=== PATIENT | female | born 1995 | race Caucasian/White ===

== ENCOUNTER 2024-05-14 12:45 | Outpatient (CLI) | payer OTHER, SELFPAY ==
--- NOTE | ~2024-05-14 | US_ITS ---
EXAMINATION: US OB <=14 wk fetus w TV DATE: 05/14/2024 13:10 INDICATION: Amenorrhea during first trimester TECHNIQUE: Real-time pelvic ultrasound utilizing both a transvaginal and transabdominal probe was pe rformed. The interpreting radiologist was not present for the study. COMPARISON: None. FINDINGS: The uterus measures 10.1 x 5.6 x 5.0 cm. There is an intrauterine gestational sac. A yolk sac and fe irving pole are identified. The crown rump length measures 1.1 cm, which correlates with an estimated ge stational age of 7 weeks and 1 days. heart motion is identified measuring 137 beats per minute (bpm) by M-mode Doppler. 2.6 x 1.5 x 1.3 cm hypoechoic subcutaneous hematoma along the caudal margin of the gestational sac. The right ovary measures 4.8 x 2.4 x 2.1 cm. The left ovary measures 2.5 x 2.1 x 1.7 cm. 2.7 x 2.2 x 1.9 cm hypoechoic lesion in the right ovary most likely a corpus luteum cyst. Vascular flow identifie d in both ovaries on color Doppler. There is minimal free fluid in the cul-de-sac. IMPRESSION: 1. Single living fetus with heart rate of 137 bpm. 2. Gestational age by ultrasound of 7 weeks 1 day(s) +/- 5 day(s) with ultrasound estimated date of delivery (YI) of 12/30/2024. Reviewed, dictated and finalized at location A. IMPRESSION: 1. Single living fetus with heart rate of 137 bpm. 2. Gestational age by ultrasound of 7 weeks 1 day(s) +/- 5 day(s) with ultraso und estimated date of delivery (YI) of 12/30/2024.
== END 2024-05-14 12:46 | disposition home or self-care (01) ==
LOC: GOSHIMG 12:45
PROVIDERS: PCP Obstetrics & Gynecology; Visit Provider Obstetrics & Gynecology
DX: N91.2 Amenorrhea, unspecified (principal); Z3A.01 Less than 8 weeks gestation of pregnancy
CPT/HCPCS: 76801; 76817

== ENCOUNTER 2024-05-14 13:06 | Outpatient (CLI) | payer OTHER, SELFPAY ==
[2024-05-14 16:40] LABS: Basophils Absolute Auto 0.1 K/mm3 (0.0-0.1); Basophils Percent Auto 0.6 % (0.2-1.2); Eosinophils Percent Auto 0.1 % (0-4.4); Hematocrit 41.2 % (37.0-47.0); Hemoglobin 13.5 g/dL (12.0-15.0); Immature Granulocyte Absolute 0.04 K/mm3 (0.00-0.031); Immature Granulocyte Percent A 0.5 % (0-0.5); Lymphocytes Absolute Auto 1.34 K/mm3 (0.9-3.2); Lymphocytes Percent Auto 15.2 % (18.3-44.2); Mean Corpuscular HGB Conc 32.8 g/dl (32-36); Mean Corpuscular Hemoglobin 30.8 pg (26-34); Mean Corpuscular Volume 93.8 fl (80-100); Mean Platelet Volume 12.4 fl (7.4-10.4); Monocytes Absolute Auto 0.7 K/mm3 (0.1-0.6); Monocytes Percent Auto 7.4 % (2.6-8.5); Neutrophils Absolute Auto 6.7 K/mm3 (1.3-6.7); Neutrophils Percent Auto 76.2 % (45.5-73.1); Platelet Count Result 170 k/mm3 (150-375); Red Blood Count 4.39 M/mm3 (4.2-5.4); Red Cell Distribution Width 12.2 % (11.5-14.5); White Blood Count 8.8 K/mm3 (4.5-10.0)
[2024-05-14 16:47] LABS: Hepatitis B Surface Antigen Negative (Negative); Rubella IgG Antibody 69.6 IU/ML
[2024-05-14 17:47] LABS: HIV 1/2 Ab P24 Ag Result Negative (Negative)
[2024-05-15 07:05] LABS: Rapid Plasma Reagin Non-Reactive (NonReactive)
[2024-05-15 12:13] LABS: CMV IgG Antibody <0.60 U/mL; Varicella IgG Antibody 6.25 S/CO
== END 2024-05-14 13:07 | disposition home or self-care (01) ==
LOC: ANHGOSHLAB 13:07
PROVIDERS: PCP Obstetrics & Gynecology; Visit Provider Obstetrics & Gynecology
DX: N91.2 Amenorrhea, unspecified (principal)
CPT/HCPCS: 36415; 81220; 81329; 84702; 85025; 86592; 86644; 86703; 86747; 86762; 86787; 86850; 86900; 86901; 87086; 87340; G0432

== ENCOUNTER 2024-10-01 09:55 | Observation (INO) | payer OTHER, SELFPAY ==
--- NOTE | ~2024-10-01 | US_ITS ---
EXAMINATION: US renal BI DATE: 10/01/2024 12:21 INDICATION: Hematuria. Right abdominal pain. TECHNIQUE: Multiple ultrasound grayscale images of the kidneys were obtained. COMPARISON: None. FINDINGS: The right kidney measures 13.6 x 7.3 x 4.6 cm. The left kidney measures 12.8 x 5.1 x 5.6 cm. The kidn eys demonstrate normal parenchymal echogenicity. There is mild right hydronephrosis. The bladder is n ormal. IMPRESSION: 1. Mild right hydronephrosis. Reviewed, dictated and finalized at location B.
[2024-10-01 10:00] VITALS: BMI 29.3
--- NOTE | 2024-10-01 10:00 | OBADM ---
This patient, Cata Martines, admitted to the OB room OB Post 116 for observation. Patient/family oriented to hospital policies and general routines including ID bracelet, bed and alarms, visiting hours, pain management, procedures, bathroom and other care routines, personal items, smoking policy, room service/diet, and visiting hours. Patient/Family are encouraged to report perceived risks to care and to ask questions if they do not understand what they are told or what they should do.
[2024-10-01 10:43] VITALS: BP 114/59; PULSE 81
[2024-10-01 11:02] LABS: Add Urine Microscopic? YES; Appearance Urine Cloudy (Clear); Bacteria Urine 2+ /hpf; Bilirubin Urine Negative (Negative); Blood Urine 2+ (Negative); Color Urine Yellow (Yellow); Glucose Urine UA Negative (Negative); Ketones Urine Negative (Negative); Leukocyte Esterase Ur Negative LEU/UL (Negative); Nitrate Urine Negative (Negative); Non Pathogenic Casts 0-2; Protein Urine Trace mg/dL (Negative); RBC Urine 51-100 /hpf (0-2); Squamous Epithelial Cell Urine Few /hpf (Few); Urobilinogen Urine 0.2 mg/dL (<2.0)
--- OUTSIDE RECORDS SUMMARY | 2024-10-01 11:34 | XMS_ITS | Clinical Summary ---
Author Organization [facility] Address [address] [place] [id number] Care Team Providers Care Email Marketing Intern Name Role Phone Unavailable Primary Care Provider Unavailabl e Allergies Active Allergy Reactions Criticality Noted Date Comments Penicillins Rash Low 11/04/2022 Medications nabumetone (RELAFEN) 500 mg tablet Take 1 Tablet (500 mg) by mouth 2 times daily. 20 Tablet 3 Active tiZANidine (ZANAFLEX) 2 mg Tablet Take 1-2 tablets by mouth every 8 hours as needed 18 Tablet 3 Active albuterol sulfate HFA 90 mcg/actuation aerosol inhaler 1 puff as needed Inhalation every 4 hrs Active Active Problems No known active problems Encounters Date Type Department Care Team Description 09/29/2024 External Device Data [facility] ABSTRACTION Provider, Abstract 09/28/2024 External Device Data [facility] Provider, Abstract 09/25/2024 External Device Data [facility] Provider, Abstract 09/11/2024 External Device Data [facility] Provider, Abstract 08/16/2024 External Device Data [facility]CTION Provider, Abstract 08/15/2024 External Device Data [facility] Provider, Abstract 08/14/2024 External Device Data [facility] ABSTRACTION Provider, Abstract from Last 3 Months Immunizations Immunization Administration Dates Next Due (ADACEL/BOOSTRIX)(10 YR UP) TDAP VACCINE, 0.5ML, IM 12/03/2023 Social History Tobacco Use Types Packs/Day Years Used Date Smoking Tobacco: Never Smokeless Tobacco: Never Comments No Sex and Gender Information Value Date Recorded Sex Assigned at Not on file Legal Sex Female 8:05 AM CDT Gender Identity Not on file Sexual Orientation Not on file Last Filed Vital Signs Vital Sign Reading Time Taken Comments Blood Pressure 107/73 12/03/2023 9:31 AM CDT Pulse 70 12/03/2023 9:31 AM CDT Temperature 36.5 C (97.7 F) 12/03/2023 9:31 AM CDT Respiratory Rate 16 12/03/2023 9:31 AM CDT Oxygen Saturation 99% 12/03/2023 9:31 AM CDT Inhaled Oxygen Concentration - - Weight 90.7 kg (200 lb) 12/03/2023 9:31 AM CDT Height 175.3 cm (5' 9 ) 12/03/2023 9:31 AM CDT Body Mass Index 29.53 12/03/2023 9:31 AM CDT Plan of Treatment Health Maintenance Due Date Last Done Comments HEPATITIS B VACCINES (1 of 3 - 19+ 3-dose series) 2013 INFLUENZA VACCINE (#1) 2024 CERVICAL CANCER SCREENING 2024 DTAP/TDAP/TD VACCINES (2 - T d or Tdap) 12/02/2033 12/03/2023 HPV VACCINES Aged Out No longer eligi ble based on patient's age to complete this topic Insurance [place] [address] [place] [address] CHOICE
--- OUTSIDE RECORDS SUMMARY | 2024-10-01 11:35 | XMS_ITS | Data Portability ---
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 Name Role Phone JOSUÉ THOMAS Primary Care Provider Unavailabl e Assessment Encounter Date Assessment Date Assessment LastModified by Organization Details LastModified Time 11/10/2023 11/10/2023 We will start to de-escalate the paroxetine she will start off by taking 20 mg 6 days a week 10 mg 1 day and she will drop from 20 to 10 mg 1 day every week until she is on 10 mg daily and then she will take it every other day for 2 weeks and then Tuesday for 2 weeks of the 10 mg and then she will discontinue signs and symptoms of early withdrawal discussed see me in 6 months [email or web address] Not available 01/11/2024 22:42:18 04/16/2024 04/16/2024 we will switch to Lexapro 5 mg daily per her teacher adult education request. Follow up with me at regular appointment [email or web address] Not available 04/21/2024 14:09:15 Plan of Treatment Reminders Order Date Submit Date Provider Last Modified By Organization Details Last Modified Time Details Appointments None recorded. Lab None recorded. Referral None recorded. Procedures None recorded. Surgeries None recorded. Imaging None recorded. Medication Orders Lexapro 5 mg tablet 024 024 [email or web address] [id number], [address], [place], [place], [phone], 11:21:41 Patient TargetsNo targets recorded. Patient Instructions Encounter Date Encounter Id Patient Instructions Last Modified By Organization Details Last Modified Time 04/16/2024 [id number] A healthy lifestyle: care instructions [email or web address] Not available 04/21/2024 14:09:26 Reason for Referral None Reported. Results Created Date Observation Date Name Description Value Unit Range Abnormal Flag Note LastModifiedBy Organization Detail LastModifiedTime Result Notes None recorded. Problems Name Problem SNOMED Code Status Onset Date Resolution Date Notes Provider Name and Address Organization Details Recorded Time Anxiety 60321971 Active 024 Josué Thomas MD Attn: Accounting ,[address] [place], [address] , [facility] 11/10/2023 22:55:24 Asthma 412475758 Active 024 Josué Thomas MD Attn: Accounting ,[address] [facility], [place], [address] , [facility] 11/10/2023 22:55:25 Problem Notes None recorded. Medical Equipment None Reported. Allergies Allergen ID Allergen Name Allergen Category Reaction Reaction Severity Criticality Documentation Date Start Date Code Code System Note Provider Name and Address Organization Details Recorded Time 355353 Product containin g penicilli n (product) medicatio n Not available Not available Not available 11/10/2023 55782 8001 SNOMED Not Available Not Available Not Available 529285 wheat gluten extract food Not available Not available Not available 11/10/2023 56783 81 RxNorm Not Available Not Available Not Available 009500 influenza virus vaccine, specific Not available Not available Not available Not available 11/10/2023 87843 UNK Not Available Not Available Not Available Medications Name Sig Start Date Stop Date Status Note LastModified by Organization Details LastModified Time tizanidine 2 mg tablet TAKE 1 TO 2 TABLETS BY MOUTH EVERY 8 HOURS NEEDED 11/09 completed Not Available Not Available Not Available azithromyci n 250 mg tablet TAKE 2 TABLETS BY MOUTH FOR 1 DAY THEN TAKE 1 TABLET BY MOUTH DAILY FOR 4 DAYS 11/09 completed Not Available Not Available Not Available meloxicam 15 mg tablet 11/09 completed Not Available Not Available Not Available prednisolon e acetate 1 % eye drops,suspe nsion SHAKE LIQUID AND INSTILL 1 DROP IN BOTH EYES THREE TIMES DAILY FOR 10 DAYS 11/09 completed Not Available Not Available Not Available paroxetine 20 mg tablet TAKE 1 TABLET BY MOUTH EVERY DAY active Not Available Not Available No t Available albuterol sulfate HFA 90 mcg/actuati on aerosol inhaler INHALE 2 PUFFS BY MOUTH EVERY 4 HOURS NEEDED active Not Available Not Available No t Available betamethaso ne dipropionat e 0.05 % lotion APPLY TOPICALLY TO THE AFFECTED AREA TWICE DAILY NEEDED 11/09 completed Not Available Not Available Not Available nabumetone 500 mg tablet 11/09 completed Not Available Not Available Not Available escitalopra m 5 mg tablet TAKE 1 TABLET BY MOUTH EVERY DAY 2024 active Not Available Not Available Not Avai lable Vitals Date Recorded Body height Body mass index (BMI) Body weight Oxygen saturation Oxygen saturation in Arterial blood by Pulse oximetry Heart rate Systolic blood pressure Diastolic blood pressure Provider Name and Address Organization Details Last Updated DateTime 4 177.8 cm 28.3 kg/m2 25223.7 g 100 % 100 % 70 /min 118 mm[Hg] 70 mm[Hg] Nisreen Clark MA [facility] 4 10:28:20 Date Recorded Body height Body mass index (BMI) Body weight Heart rate Oxygen saturation Oxygen saturation in Arterial blood by Pulse oximetry Systolic blood pressure Diastolic blood pressure Provider Name and Address Organization Details Last Updated DateTime 4 177.8 cm 28.1 kg/m2 18491.1 g 75 /min 99 % 99 % 110 mm[Hg] 68 mm[Hg] Estrella Jordan MA [facility] 4 12:19:21 Social History Question Answer Notes LastModified by Organizat ion Details LastModified Time Tobacco Smoking Status Never Smoker Nisreen Clark MA null, [facility] 11/10/2023 10:21:31 Do You Have An Advance Directive? No Information not available 11/10/2023 What Is Your Level Of Alcohol Consumption? Occasional Information not available 11/10/2023 Are You Blind Or Do You Have Difficulty Seeing? No Information not available 11/10/2023 What Is Your Level Of Caffeine Consumption? Moderate Information not available 11/10/2023 In The 14 Days Before Symptom Onset, Have You Had Close Contact With A Laboratory-[facility] While That Case Was Ill? No Information not available 04/16/2024 In The 14 Days Before Symptom Onset, Have You Had Close Contact With A Person Who Is Under Investigation For COVID-19 While That Person Was Ill? No Information not available 04/16/2024 Have You Been To An Area Known To Be High Risk For COVID-19? No Information not available 04/16/2024 Are You Currently Employed? Yes Information not available 11/10/2023 Are You Deaf Or Do You Have Serious Difficulty Hearing? No Information not available 11/10/2023 What Type Of Diet Are You Following? REGULAR Information not available 11/10/2023 What Is Your Occupation? [employer] Information not available 11/10/2023 What Was The Date Of Your Most Recent Tobacco Screening? 04/16/2024 Information not available 04/16/2024 What Is Your Relationship Status? Information not available 11/10/2023 Do You Use Your Seat Belt Or Car Seat Routinely? Yes Information not available 11/10/2023 Do You Have Smoke And Carbon Monoxide Detectors In Your Home? Yes Information not available 11/10/2023 Do You Feel Stressed (tense, Restless, Nervous, Or Anxious, Or Unable To Sleep At Night)? [id number] Information not available 11/10/2023 Do You Use Any Illicit Or Recreational Drugs? No Information not available 11/10/2023 Do You Use Sunscreen Routinely? Yes Information not available 11/10/2023 Has Tobacco Cessation Counseling Been Provided? No Information not available 11/10/2023 Do You Or Have You Ever Used Any Other Forms Of Tobacco Or Nicotine? No Information not available 11/10/2023 Sex: Female Functional Status Question Answer Note LastModified by Organizat ion Details LastModified Time Are you able to care for yourself? Yes Information not available 11/10/2023 What is your exercise level? Occasional Information not available 11/10/2023 Mental Status None recorded. Family History Relationship Description Onset Age of this Age Resolved Age Notes LastModified by Organization Details LastModified Time Father Hypertensive disorder [email or web address] Not available 10/23 10:20:49 Mother Hypertensive disorder [email or web address] Not available 10/23 10:20:49 Mother Epilepsy [email or web address] Not availa ble 11/10/2023 10:21:11 Medical History Condition Response Coronary Artery Disease N Other Y Atrial Fibrillation N High Blood Pressure N Depression N COPD N Blood Clots N Anxiety Disorder Y Muscle, Joint, or Bone Problems N Acid Reflux (GERD) N Cancer N Stroke N High Cholesterol N Liver Disease N Headaches N Kidney or Bladder Problems N Thyroid Problems N GI Problems N Skin Problems N Anemia N Heart Attack ([place]) N Diabetes Y Seizures/Epilepsy N Asthma Y Allergies N Hepatitis N Heart Failure N Osteoporosis N Gynecological History Statement/Question Response Date of LMP 03/22/2024 LMP Approximate Obstetrics History GPAL:G 0 P 0 0 0 0 Past Encounters Encounter ID Performer Location Encounter Start Date Encounter Closed Date Diagnosis/Indication Diagnosis SNOMED-CT Code Diagnosis ICD10 Code Diagnosis Note [id number] Josué Thomas MD [facility] [employer] [address] [place] [address] 11/10/2023 10:09:43 11/10/2023 10:53:55 Anxiety 71290895 F41.9 Asthma 455115586 J45.90 9 [id number] Josué Thomas MD [facility] [employer] [address] [place] [address] 04/16/2024 11:43:06 04/16/2024 13:27:13 Overweight 347252254 E66.3 Anxiety 87285482 F41.9 Health Concerns Section Related Observation LastModified by Organization Detai ls LastModified Time None Recorded Concern Status LastModified by Organization Details LastModified Time None Recorded Advance Directives Directive N: Payers Encounter Date Sequence Insurance Name Policy Number Policy Roland Covered Member ID Roland Member ID Guarantor Name 11/10/2023 1 [facility] [id number] Cata Martines [id number] Cata Martines 04/16/2024 1 [facility] [id number] Carlos Miguel [place] [id number] Cata Martines Notes Date Note Type Note Provider Name and Address Organization Details Recorded Time 11/10/2023 text/html 28-year-old slee p apnea CPAP anxiety asthma overall doing fine would like to start coming off the Paxil asthma stable sleep apnea doing okay Josué Thomas MD Attn: Accounting,[address] [facility], [place], [address], [facility] 01/11/2024 22:42:21 04/16/2024 text/html she did see teacher adult education and was told that they would prefer her to be off of Paxil and on Lexapro and the patient would like to do that as she is going to be contemplating starting a family soon Josué Thomas MD Attn: Accounting[address] [facility], [place], [address], [facility] 04/21/2024 14:09:28 OBGyn Episode No OBEpisode recorded.
--- OUTSIDE RECORDS SUMMARY | 2024-10-01 11:35 | XMS_ITS | Data Portability ---
Author Organization [place] [facility] [employer], Main Office Address [address] [place] [address] Assessment Encounter Date Assessment Date Assessment LastModified by Organization Details LastModified Time 11/04/2022 11/04/2022 Will x-ray the back physical therapy tizanidine 4 mg q.h.s. she will report back by phone in 48-72 hours with update [email or web address] Not available 11/14/2022 12:43:56 01/31/2023 01/31/2023 Continue with e tizanidine she has now failed physical therapy will get an MRI of her lumbar spine [email or web address] Not available 01/31/2023 22:31:21 08/04/2023 08/04/2023 Assessment: Mild OSAHS, AHI = 9 Plan: The following were reviewed and explained to the patient: [facility] home sleep study 01/19/21 AHI = 9 PAP compliance downloaded and interpreted x 20 minutes. Data reviewed and explained to the patient. Average apnea/hypopnea index (AHI) is 2.6. Patient used PAP > 4 hours 1% of the time. PAP is set at 8-11 cmH2O. PAP will be reset at 9-11 cmH2O until repeat sleep studies are done. Oxygen supplementation: none Patient is benefiting from PAP therapy. Encouraged patient to maintain PAP use more than 70% of the time. Statement of PAP use and benefits will be sent to the home care store. The patient will bring the PAP unit, the hose, the cord, the mask and the card/chip to each follow-up visit for further evaluation and adjustments. Educated the patient on problems and solutions associated with positive airway pressure (PAP) use. Difficulty tolerating pressure, mask leaks, intolerance of interface, nasal congestion, claustrophobic response, dry mouth, and unintentional mask removal during sleep were covered. Patient has some difficulty tolerating pressure. Patient is advised to practice wearing PAP daily while awake, lower pressure with or without sleeping on sides, activate PAP ramp feature, have blower checked to make sure pressure is set as prescribed and return to sleep center for consideration of auto-adjusting PAP therapy. Dry mouth is a normal occurrence for people who just start out on PAP therapy because they are not used to air blowing in to the throat to hold open. Dry mouth is exacerbated for people who wear nasal PAP mask and whose jaw drops open during sleep. Not only does this create a much less efficient therapy because of leakage, it also causes dry mouth. There are a couple solutions to help prevent this type of problem. A simple solution would be to wear a chinstrap which essentially holds the jaw in place. A second solution would be a switch to a full face mask which covers both the nose and mouth. Although this is another easy solution, using a full face mask for some could seem claustrophobic or confining. There is no silver bullet solution as no single mask is right for everybody. Sometimes it takes a bit of experimentation to find a PAP mask which best meets the patient's needs as well as fits comfortably. Another tactic is to use a humidifier on your PAP machine. Most new PAP machines have integrated humidifiers. Humidification is falcon when dealing with symptoms of dry mouth because the humidifier can supply both warm and room temperate air. Even a small amount of humidity in the airflow will help nasal passages to stay hydrated. If a person is using both a full face mask and a PAP machine with a heated humidifier and is still experiencing dry mouth, an ill-fitted PAP mask might be causing the problem. Leakage can be caused by a mask that is to large or small, the wrong style mask, the cushion is degraded or simply because the mask's straps aren't adjusted correctly. If leakage occurs, dry air from the room can leak in while humidification escapes. The result is reduced humidification within the circuit and resulting in dry throat and mouth. Finally, beyond factors involving the PAP machine and mask, dry mouth can also be caused or worsened by dehydration. The general recommendation to during eight 8 oz. glasses of water a day might be too little for many people. When people drink large amounts of coffee or other caffeine beverages, or sweat a lot during the day, making sure to rehydrate is an important part of PAP therapy. Patient will setup an appointment with [facility] for supplies and pressure adjustments. A major predictor of success with use of PAP is follow-up with both the respiratory supplier and the treating physician. To help assess adherence, a downloadable card/chip is ordered with the PAP equipment. The card/chip will be downloaded by the respiratory supplier and sent to the treating physician. The download results can show the treating physician information about adherence to treatment, residual AHI while on treatment and presence of large mask leakage. This information is especially helpful if the patient has residual sleepiness despite treatment. General information on sleep disorder breathing, evaluation of sleep disordered breathing, treatment with PAP therapy, and living with PAP therapy were covered. We discussed with the patient the impact of weight on: Sleep disordered breathing Hyperlipidemia We discussed with the patient the benefit of PAP therapy on: Sleep disordered breathing Depression Educated the patient on sleep hygiene measures. Relaxing rituals to rest easy, understanding foods with positive and negative impact on sleep, creating a peaceful sleep environment, timing of exercise, using herbal sleep aids, and practicing sleep-friendly meditation were covered. To determine how much sleep is needed, the patient will assess where (s)he falls on the spectrum, examine what lifestyle factors such as work schedules and stress are affecting the quality and quantity of sleep. In general, adults need 7-9 hours of sleep. Educated the patient regarding foods that promote sleep. These include but are not limited to cherries, bananas, toast, oatmeal, and warm milk. Educated the patient regarding foods and drinks to avoid before bedtime. These include but are not limited to aged cheese, chocolate, spicy foods, tomato-based sauces, soy, ginseng tea and processed meat. Advocated influenza vaccination annually and pneumonia vaccination in 2058. Advocated weight loss through diet and exercise. Patient's ideal body weight according to height and gender is up to 150 lbs. Encouraged patient to adjust caloric intake to maintain/achieve ideal body weight, emphasizing on fruits, vegetables, whole grains, and fat-free or low-fat products. These include lean meats, poultry, fish, beans, eggs, and nuts and foods that are low in saturated fats, trans-fats, cholesterol, salt (sodium), and glycemic index. Stressed the importance of regular exercise up to the patient's capacity limits. In this case, we recommend 20 min daily walking, 2 days a week of resistance training. Patient to monitor BP daily and bring records to PCP for further management. Follow-up: 1 week after diagnostic sleep study Not available 08/04/2023 12:11:54 10/27/2023 10/27/2023 Assessment: Mild OSAHS, AHI = 7 Plan: The following were reviewed and explained to the patient: [facility] home sleep study 01/19/21 AHI = 9 [facility] diagnostic sleep study 09/28/23 AHI = 7, supine AHI = 10 Patient will resume CPAP therapy. PAP is set at 9-11 cmH2O. PAP will remain at 9-11 cmH2O. Oxygen supplementation: none Patient is benefiting from PAP therapy. Encouraged patient to maintain PAP use more than 70% of the time. Statement of PAP use and benefits will be sent to the home care store. The patient will bring the PAP unit, the hose, the cord, the mask and the card/chip to each follow-up visit for further evaluation and adjustments. Educated the patient on problems and solutions associated with positive airway pressure (PAP) use. Difficulty tolerating pressure, mask leaks, intolerance of interface, nasal congestion, claustrophobic response, dry mouth, and unintentional mask removal during sleep were covered. Patient has some difficulty tolerating pressure. Patient is advised to practice wearing PAP daily while awake, lower pressure with or without sleeping on sides, activate PAP ramp feature, have blower checked to make sure pressure is set as prescribed and return to sleep center for consideration of auto-adjusting PAP therapy. Dry mouth is a normal occurrence for people who just start out on PAP therapy because they are not used to air blowing in to the throat to hold open. Dry mouth is exacerbated for people who wear nasal PAP mask and whose jaw drops open during sleep. Not only does this create a much less efficient therapy because of leakage, it also causes dry mouth. There are a couple solutions to help prevent this type of problem. A simple solution would be to wear a chinstrap which essentially holds the jaw in place. A second solution would be a switch to a full face mask which covers both the nose and mouth. Although this is another easy solution, using a full face mask for some could seem claustrophobic or confining. There is no silver bullet solution as no single mask is right for everybody. Sometimes it takes a bit of experimentation to find a PAP mask which best meets the patient's needs as well as fits comfortably. Another tactic is to use a humidifier on your PAP machine. Most new PAP machines have integrated humidifiers. Humidification is falcon when dealing with symptoms of dry mouth because the humidifier can supply both warm and room temperate air. Even a small amount of humidity in the airflow will help nasal passages to stay hydrated. If a person is using both a full face mask and a PAP machine with a heated humidifier and is still experiencing dry mouth, an ill-fitted PAP mask might be causing the problem. Leakage can be caused by a mask that is to large or small, the wrong style mask, the cushion is degraded or simply because the mask's straps aren't adjusted correctly. If leakage occurs, dry air from the room can leak in while humidification escapes. The result is reduced humidification within the circuit and resulting in dry throat and mouth. Finally, beyond factors involving the PAP machine and mask, dry mouth can also be caused or worsened by dehydration. The general recommendation to during eight 8 oz. glasses of water a day might be too little for many people. When people drink large amounts of coffee or other caffeine beverages, or sweat a lot during the day, making sure to rehydrate is an important part of PAP therapy. Patient will setup an appointment with [facility] for supplies and pressure adjustments. A major predictor of success with use of PAP is follow-up with both the respiratory supplier and the treating physician. To help assess adherence, a downloadable card/chip is ordered with the PAP equipment. The card/chip will be downloaded by the respiratory supplier and sent to the treating physician. The download results can show the treating physician information about adherence to treatment, residual AHI while on treatment and presence of large mask leakage. This information is especially helpful if the patient has residual sleepiness despite treatment. General information on sleep disorder breathing, evaluation of sleep disordered breathing, treatment with PAP therapy, and living with PAP therapy were covered. We discussed with the patient the impact of weight on: Sleep disordered breathing Hyperlipidemia We discussed with the patient the benefit of PAP therapy on: Sleep disordered breathing Depression Educated the patient on sleep hygiene measures. Relaxing rituals to rest easy, understanding foods with positive and negative impact on sleep, creating a peaceful sleep environment, timing of exercise, using herbal sleep aids, and practicing sleep-friendly meditation were covered. To determine how much sleep is needed, the patient will assess where (s)he falls on the spectrum, examine what lifestyle factors such as work schedules and stress are affecting the quality and quantity of sleep. In general, adults need 7-9 hours of sleep. Educated the patient regarding foods that promote sleep. These include but are not limited to cherries, bananas, toast, oatmeal, and warm milk. Educated the patient regarding foods and drinks to avoid before bedtime. These include but are not limited to aged cheese, chocolate, spicy foods, tomato-based sauces, soy, ginseng tea and processed meat. Advocated influenza vaccination annually and pneumonia vaccination in 2058. Advocated weight loss through diet and exercise. Patient's ideal body weight according to height and gender is up to 150 lbs. Encouraged patient to adjust caloric intake to maintain/achieve ideal body weight, emphasizing on fruits, vegetables, whole grains, and fat-free or low-fat products. These include lean meats, poultry, fish, beans, eggs, and nuts and foods that are low in saturated fats, trans-fats, cholesterol, salt (sodium), and glycemic index. Stressed the importance of regular exercise up to the patient's capacity limits. In this case, we recommend 20 min daily walking, 2 days a week of resistance training. Patient to monitor BP daily and bring records to PCP for further management. Follow-up: 1 year, October 2024 Not available 10/27/2023 09:11:43 Plan of Treatment Reminders Order Date Submit Date Provider Last Modified By Organization Details Last Modified Time Details Appointments Establish ed Patient 15 2024 07:30A Mariajose Salmeron MD Not available Not available Not available Lab None recorded. Referral physical therapist referral 2022 023 [facility], [address], [place], [address], 12/17/2022 09:12:02 Procedures None recorded. Surgeries None recorded. Imaging polysomno gram, diagnosti c, 6 yrs or older 2023 024 [facility], [address], [place], [address], 10/04/2023 09:59:52 MRI, lumbar spine, w/o contrast - No auth required ref#[id number] 2022 023 [email or web address] Not available 02/03/2023 13:47:02 XR, lumbar spine 2022 023 [email or web address] Not available 11/18/2022 09:03:07 Medication Orders paroxetin e 20 mg tablet 2022 023 [id number], [address], [place], [id number], 11/04/2022 16:09:47 Patient TargetsNo targets recorded. Patient InstructionsNo instructions recorded. Reason for Referral Physical Therapist Referral for Low back pain Referring Physician: Josué Thomas, Internal Medicine, Encounter Date: 11/04/2022 Results Created Date Observation Date Name Description Value Unit Range Abnormal Flag Note LastModifiedBy Organization Detail LastModifiedTime 11/05/19 23 XR, lumba r spine [facility] [address] [address] Patien t Name: KALEIGH MARTINES Access ion #: [id number] Sex: F : 1994 5 Locati on: RA2 Attend ing Physic milla: CASSI THOMAS Orderi Physic milla: CASSI THOMAS Exam Date: 023 3:16 PM Exam Name: XR L SPINE 4V+ Admitt ing Diagno sis(es ): RADIOL OGY REPORT - FINAL EXAM: XR L SPINE 4V+ HISTOR Y: lbp 27-yea r-old female with low back pain, no known injury . Pain radiat es to the bilate ral lower extrem ities. COMPAR NEGAR: None availa ble. TECHNI QUE: Five views of the lumbar spine were perfor med. FINDIN GS: No fractu res are identi fied about the lumbar spine. There is slight retrol isthes is L5 on S1 measur ing 2 mm AP. No signif icant degene rative change s. There are thorac olumba r and lumbos acral transi tional verteb christos. There is slight thorac olumba r levosc oliosi s. The obliqu e films do not demons trate spondy lolysi s. Page 1 of 2 [facility] Patien t Name: KALEIGH MARTINES Access ion #: [id number] Sex: F : 1994 5 Exam Date: 3:16 PM Exam Name: XR L SPINE 4V+ Admitt ing Diagno sis(es ): IMPRES HAYLEY: 1. No fractu re of the lumbar spine. 2. Slight thorac olumba r levosc oliosi s. 3. Thorac olumba r and lumbos acral transi tional verteb christos incide ntally noted. Create d and electr onical ly signed by: Orlin ewing MD Signed Date: 3:33 PM (CT) Dictat ed by: Orlin ewing MD DD: 3:33 PM (CT) DT: 3:33 PM (CT) Page [address] (Imaging) [address] [place] [address], [address], 05/07/2023 22:57:20 02/04/20 23 MRI, lumba r spine , w/o contr ast [facility] [address] [address] Pati t Name: KALEIGH MARTINES Access ion #: [id number] Sex: F : 1994 3 Dictat ed By: Cassi Newell ing Physic milla: CASSI THOMAS Physic milla: MELISSA CAMERON Exam Date: 2022 11:40 AM Exam Name: MRI L SPINE WO Admitt ing Diagno sis(es ): CLINIC AL INFORM ATION: Low back pain with bilate ral leg pain. TECHNI ONELIA INFORM ATION: Multis equenc e multip lanar MRI images of the lumbar spine were obtain ed withou t contra st. COMPAR NEGAR: None. INTERP RETATI ON: Straig htenin g of the normal lumbar lordos is. No signif icant spondy lolist hesis per Verteb ral body height s are mainta ined. Travel Agent ior elemen ts are intact . No focal suspic ious marrow signal abnorm ality. Visual ized spinal cord and cauda equina are within normal limits . The conus medull ngozi is approp riate in signal at the L1 level. Parasp inal soft tissue s are unrema rkable . L1-L2: No signif icant disc/f acet abnorm ality. No signif icant spinal canal or neural forami nal stenos is. L2-L3: No signif icant disc/f acet abnorm ality. No signif icant spinal canal or neural forami nal stenos is. L3-L4: No signif icant disc/f acet abnorm ality. No signif icant spinal canal or neural forami nal stenos is. L4-L5: No signif icant disc/f acet abnorm ality. No signif icant spinal canal or neural forami nal stenos is. L5-S1: Disc desicc ation with right parace ntral disc extrus ion extend ing slight ly caudal ly along the dorsal aspect of the S1 verteb ral body, measur ing up to 6.5 mm in AP dimens ion and 5 mm in cranio caudal extent . There is partia l efface ment of the right latera l recess with the disc extrus ion closel y approx imatin g the right S1 nerve roots within the latera l recess . There is facet hypert rophy with modera te bilate ral neural forami nal stenos es. Page 1 [facility] [address] [place] [address] [phone] Patien t Name: KALEIGH MARTINES Access ion #: [id number] Sex: F : 1994 3 Dictat ed By: Cassi blancas [facility] ing Physic milla: MELISSA CAMERON ng Physic milla: MELISSA CAMERON Exam Date: 2022 11:40 AM Exam Name: MRI L SPINE WO Admitt ing Diagno sis(es ): IMPRES HAYLEY: 1. Right parace ntral disc extrus ion at L5-S1, partia lly effaci ng the right latera l recess and closel y approx imatin g the right S1 nerve roots within the latera l recess . 2. Facet hypert rophy at L5-S1 with modera te bilate ral neural forami nal stenos es. Electr onical ly Signed by: Cassi blancas at 2022 12:44: 45 PM Page 2 [facility] (Imaging) [address] [place], [address], 02/04/2023 11:04:19 10/04/19 24 09/28/2023 polys omnog tina, diagn ostic , 6 yrs or older No observ ation record ed. [facility] [address] [place], [address], 10/04/2023 09:59:53 Result Notes None recorded. Problems Name Problem SNOMED Code Status Onset Date Resolution Date Notes Provider Name and Address Organization Details Recorded Time Acne 02030099 Active 2021 Not Available [facility] 3 06:22:10 Infectious mononucleosis 383586392 Active Not Available [facility] 3 06:22:10 Anxiety 13451734 Active 2021 Not Available [facility] 3 06:22:10 Hyperlipidemi a 75500424 Active 2021 Not Available [facility] 3 06:22:10 Low back pain 109177355 Active 2022 Not Available [facility] 3 06:22:10 Obstructive sleep apnea syndrome 23769255 Active 2023 Taco Salmeron MD [address], [place], [address] , [facility] [email or web address] [facility] 4 11:40:49 Notes:Medical History: Depre ssion Rhinitis Obesity with mild OSAHS, AHI = 9, 01/19/21, on autoCPAP c/o IVRC Obesity with mild OSAHS, AHI = 7, 01/19/21, on autoCPAP c/o IVRC Hyperlipidemia Psoriasis 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 Procedures Surgical History None recorded. Imaging Results Imaging Date Name Status LastModified by Organiz ation Details LastModified Time 11/04/2022 XR, lumbar spine completed [id number] [facility] (Imaging) [address] [place], [address], 05/07/2023 22:57:20 02/03/2023 [facility], lumbar spine, w[facility]o contrast [email or web address] (Imaging) [address] [place], [address], 02/04/2023 11:04:19 09/28/2023 polysomnogram , diagnostic, 6 yrs or older completed [facility] [address] [place], [address], 10/04/2023 09:59:53 Procedure Notes None recorded. Medical Equipment None Reported. Allergies Allergen ID Allergen Name Allergen Category Reaction Reaction Severity Criticality Documentation Date Start Date Code Code System Note Provider Name and Address Organization Details Recorded Time 45492 Product containin g penicilli n (product) medicatio n hives Not available Not available 09/22/2022 16600 8001 SNOMED Not Available [facility] 3 18:08:02 97721 influenza A (H5N1) virus vaccine monoval (18 yr +) Not available hives Not available Not available 09/22/2022 50273 UNK Not Available [facility] 3 18:08:03 Medications Name Sig Start Date Stop Date Status Note LastModified by Organization Details LastModified Time prednisone 10 mg tablet take 3 for 2 days, 2 for 2 days, 1 for 2 days active Not Available Not Available No t Available tizanidine 2 mg tablet Take 1 tablet every 8 hours by oral route. 10/26 completed Not Available Not Available Not Available clindamycin HCl 300 mg capsule 01/26 completed Not Available Not Available Not Available azithromyci n 250 mg tablet TAKE 2 TABLETS BY MOUTH FOR 1 DAY THEN TAKE 1 TABLET BY MOUTH DAILY FOR 4 DAYS 10/26 completed Not Available Not Available Not Available ibuprofen 800 mg tablet 01/26 completed Not Available Not Available Not Available metronidazo le 0.75 % (37.5 mg/5 gram) vaginal gel 01/26 completed Not Available Not Available Not Available prednisone 20 mg tablet 07/14 completed Not Available Not Available Not Available spironolact one 100 mg tablet 08/01 completed Not Available Not Available Not Available terconazole 0.8 % vaginal cream 01/26 completed Not Available Not Available Not Available clindamycin HCl 150 mg capsule TAKE ONE CAPSULE BY MOUTH FOUR TIMES DAILY UNTIL ALL GONE 12/30 completed Not Available Not Available Not Available topiramate 25 mg tablet TAKE 1 TABLET BY MOUTH TWICE DAILY active Not Available Not Available No t Available phentermine 37.5 mg tablet active Not Available Not Available Not Available tretinoin 0.05 % topical cream 01/06 completed Not Available Not Available Not Available ciprofloxac in 500 mg tablet TK 1 T PO Q 12 H 12/12 completed Not Available Not Available Not Available prednisolon e acetate 1 % eye drops,suspe nsion SHAKE LIQUID AND INSTILL 1 DROP IN BOTH EYES THREE TIMES DAILY FOR 10 DAYS 08/04 completed Not Available Not Available Not Available benzonatate 100 mg capsule 08/01 completed Not Available Not Available Not Available doxycycline monohydrate 100 mg capsule TAKE ONE CAPSULE BY MOUTH EVERY 12 HOURS FOR 10 DAYS 02/25 completed Not Available Not Available Not Available paroxetine 20 mg tablet TAKE 1 TABLET BY MOUTH EVERY DAY active Not Available Not Available No t Available cyanocobala min (vit B-12) 1,000 mcg/mL injection solution 02/16 completed Not Available Not Available Not Available Advair Diskus 250 mcg-50 mcg/dose powder for inhalation Inhale 1 puff twice a day by inhalatio n route. active Not Available Not Available No t Available montelukast 10 mg tablet TK 1 T PO Q DAY 01/06 completed Not Available Not Available Not Available albuterol sulfate HFA 90 mcg/actuati on aerosol inhaler INHALE 2 PUFFS BY MOUTH EVERY 4 HOURS NEEDED active Not Available Not Available No t Available fluticasone propionate 50 mcg/actuati on nasal spray,suspe nsion [place] 1 spray every day by intranasa l route. active Not Available Not Available No t Available betamethaso ne dipropionat e 0.05 % lotion APPLY TOPICALLY TO THE AFFECTED AREA TWICE DAILY NEEDED 08/04 completed Not Available Not Available Not Available doxycycline hyclate 100 mg tablet Take 1 tablet twice a day by oral route. active Not Available Not Available No t Available adapalene 0.1 % topical gel 02/16 completed Not Available Not Available Not Available naproxen 500 mg tablet 01/06 completed Not Available Not Available Not Available spironolact one 50 mg tablet TAKE 2 TABLETS PO QAM 01/06 completed Not Available Not Available Not Available nabumetone 500 mg tablet Take 1 tablet twice a day by oral route. 10/26 completed Not Available Not Available Not Available cyclobenzap rine 5 mg tablet 07/14 completed Not Available Not Available Not Available Claravis 40 mg capsule Take 2 capsules every day by oral route in the morning. 01/06 completed Not Available Not Available Not Available Tri-Sprinte c (28) 0.18 mg(7)/0.215 mg(7)/0.25 mg(7)-35 mcg tablet TK 1 T PO D 08/01 completed Not Available Not Available Not Available hydrocodone 7.5 mg-acetamin ophen 325 mg/15 mL oral solution 07/14 completed Not Available Not Available Not Available Lutera (28) 0.1 mg-20 mcg tablet TK 1 T PO Q DAY 01/26 completed Not Available Not Available Not Available B Complex-Vit egan B12 01/06 completed Not Available Not Available Not Available drospirenon e 3 mg-ethinyl estradiol 0.02 mg tablet TAKE 1 TABLET BY MOUTH EVERY DAY 09/14 completed Not Available Not Available Not Available Claravis 30 mg capsule 01/26 completed Not Available Not Available Not Available Symbicort 80 mcg-4.5 mcg/actuati on HFA aerosol inhaler INHALE 2 PUFFS BY MOUTH TWICE DAILY 09/14 completed Not Available Not Available Not Available Doryx 200 mg tablet,lester yed release 02/16 completed Not Available Not Available Not Available Onexton 1.2 % (1 % base)-3.75 % topical gel with pump 01/06 completed Not Available Not Available Not Available Vitals Date Recorded Body mass index (BMI) Heart rate Body height Oxygen saturation Oxygen saturation in Arterial blood by Pulse oximetry Heart rate Respiratory rate Body temperature Body weight Systolic blood pressure Diastolic blood pressure Provider Name and Address Organization Details Last Updated DateTime 2 28.5 kg/m2 76 /min 172.72 cm 98 % 98 % 76 /min 15 /min 97.8 [degF] 09894.2 1 g 110 mm[Hg] 70 mm[Hg] Not Available [facility] 3 18:05:38 Date Recorded Body height Body mass index (BMI) Body weight Body temperature Heart rate Systolic blood pressure Diastolic blood pressure Provider Name and Address Organization Details Last Updated DateTime 3 172.72 cm 29.8 kg/m2 89928.1 g 98.3 [degF] 82 /min 124 mm[Hg] 80 mm[Hg] MICHAEL Carter [employer] 3 15:06:11 Date Recorded Body height Body mass index (BMI) Body weight Body temperature Heart rate Systolic blood pressure Diastolic blood pressure Provider Name and Address Organization Details Last Updated DateTime 3 172.72 cm 30.9 kg/m2 36288.2 5 g 98.7 [degF] 78 /min 118 mm[Hg] 70 mm[Hg] MICHAEL Carter [employer] 3 14:08:09 Date Recorded Body height Body mass index (BMI) Body weight Body temperature Heart rate Oxygen saturation Oxygen saturation in Arterial blood by Pulse oximetry Systolic blood pressure Diastolic blood pressure Provider Name and Address Organization Details Last Updated DateTime 4 172.72 cm 31.5 kg/m2 93738.6 2 g 98.6 [degF] 66 /min 98 % 98 % 120 mm[Hg] 72 mm[Hg] Aliya Pena MA [employer] 4 11:53:06 Date Recorded Heart rate Respiratory rate Provider N nicole and Address Organization Details Last Updated DateTime 08/04/2023 66 /min 15 /min Taco Salmeron MD [address] [place] [address] [place], [address], [address], [facility] [employer] 08/04/2023 12:08:52 Date Recorded Body height Body mass index (BMI) Body weight Body temperature Heart rate Oxygen saturation Oxygen saturation in Arterial blood by Pulse oximetry Systolic blood pressure Diastolic blood pressure Provider Name and Address Organization Details Last Updated DateTime 4 172.72 cm 30 kg/m2 02087.8 5 g 98.5 [degF] 75 /min 99 % 99 % 108 mm[Hg] 68 mm[Hg] Cristine Silva MA [facility] [employer] 4 08:46:29 Date Recorded Heart rate Respiratory rate Provider N nicole and Address Organization Details Last Updated DateTime 10/27/2023 75 /min 14 /min Taco Salmeron MD [address] [facility] [address], [place], [address], [facility] [employer] 10/27/2023 09:04:48 Social History Question Answer Notes LastModified by Organizat ion Details LastModified Time Tobacco Smoking Status Never Smoker Not Available [facility] 09/22/2022 18:05:10 Do You Have An Advance Directive? No [id number] Information not available 09/22/2022 What Is Your Level Of Alcohol Consumption? Occasional MIGRATION.20415 [id number] Information not available 09/22/2022 Do You Wear A Helmet When Biking? No MIGRATION.60863 04172 Information not available 09/22/2022 What Is Your Level Of Caffeine Consumption? Heavy MIGRATION.11482 52267 Information not available 09/22/2022 How Much Tobacco Do You Chew? None MIGRATION.18927 19560 Information not available 09/22/2022 In The 14 Days Before Symptom Onset, Have You Had Close Contact With A Laboratory-confi rmed COVID-19 While That Case Was Ill? No MIGRATION.32476 90801 Information not available 09/22/2022 In The 14 Days Before Symptom Onset, Have You Had Close Contact With A Person Who Is Under Investigation For COVID-19 While That Person Was Ill? No MIGRATION.76210 56552 Information not available 09/22/2022 What Type Of Diet Are You Following? GLUTENFREE MIGRATION.71145 77291 Information not available 09/22/2022 Which Illicit Or Recreational Drugs Have You Used? No MIGRATION.67529 89817 Information not available 09/22/2022 Do You Or Have You Ever Used E-cigarettes Or Vape? Never Used Electronic Cigarettes MIGRATION.54294 13182 Information not available 09/22/2022 What Is The Highest Grade Or Level Of School You Have Completed Or The Highest Degree You Have Received? GR05067-3 MIGRATION.06312 50435 Information not available 09/22/2022 Do You Have An Electrostatic Air Filter? 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 5 MIGRATION.47440 10038 Information not available 09/22/2022 On Those Days That You Engage In Moderate To Strenuous Exercise, How Many Minutes, On Average, Do You Exercise? 45 MIGRATION.01991 55014 Information not available 09/22/2022 Have There Been Any Changes To Your Family Or Social Situation? No MIGRATION.57290 52335 Information not available 09/22/2022 What Is The Fluoride Status Of Your Home? Unknown MIGRATION.82239 10988 Information not available 09/22/2022 Are There Any Guns Present In Your Home? No MIGRATION.73713 33902 Information not available 09/22/2022 Do You Have A Humidifier? No MIGRATION.26091 80722 Information not available 09/22/2022 Do You Use Insect Repellent Routinely? No MIGRATION.97256 07125 Information not available 09/22/2022 Where Do You Live? Apartment MIGRATION.63291 55313 Information not available 09/22/2022 Do You Have A Medical Power Of Shoemaking Finisher? No MIGRATION.21410 88707 Information not available 09/22/2022 Do You Have Moisture Problems In Your Home? No MIGRATION.37899 22690 Information not available 09/22/2022 What Was The Date Of Your Most Recent Tobacco Screening? 10/27/2023 [email or web address] Information not available 10/27/2023 Have You Ever Been Counseled For Unhealthy Alcohol Use? No MIGRATION.52246 63512 Information not available 09/22/2022 Do You Have Any Pets? No MIGRATION.88826 04104 Information not available 09/22/2022 What Is Your Relationship Status? Single Engaged MIGRATION.79249 03760 Information not available 09/22/2022 Do You Use Your Seat Belt Or Car Seat Routinely? Yes MIGRATION.52831 64439 Information not available 09/22/2022 Do You Have Smoke And Carbon Monoxide Detectors In Your Home? Yes MIGRATION.58666 61757 Information not available 09/22/2022 Are You Passively Exposed To Smoke? No MIGRATION.24626 02110 Information not available 09/22/2022 Do You Or Have You Ever Used Smokeless Tobacco? Never Used Smokeless Tobacco MIGRATION.51810 02623 Information not available 09/22/2022 Are There Any Smokers In Your House? No MIGRATION.99602 86857 Information not available 09/22/2022 How Much Tobacco Do You Smoke? No MIGRATION.44870 55069 Information not available 09/22/2022 What Types Of Sporting Activities Do You Participate In? Cycling Classes MIGRATION.23868 33854 Information not available 09/22/2022 Do You Feel Stressed (tense, Restless, Nervous, Or Anxious, Or Unable To Sleep At Night)? [id number] MIGRATION.57694 25950 Information not available 09/22/2022 Do You Use Any Illicit Or Recreational Drugs? No MIGRATION.35404 61513 Information not available 09/22/2022 Do You Use Sunscreen Routinely? No MIGRATION.94015 48830 Information not available 09/22/2022 Has Tobacco Cessation Counseling Been Provided? No Not Needed-nev er Smoked MIGRATION.78060 22846 Information not available 09/22/2022 How Many Years Have You Smoked Tobacco? 0 MIGRATION.56869 54747 Information not available 09/22/2022 Have You Recently Traveled Abroad? No MIGRATION.96526 81370 Information not available 09/22/2022 Do You Have Any Dietary Restrictions? No MIGRATION.21703 92082 Information not available 09/22/2022 Do You Or Have You Ever Used Any Other Forms Of Tobacco Or Nicotine? No MIGRATION.20441 91923 Information not available 09/22/2022 Sex: Female Functional Status Question Answer Note LastModified by Organizat ion Details LastModified Time What is your exercise level? Heavy MIGRATION.[id number] Information not available 09/22/2022 Mental Status None recorded. Family History Relationship Description Onset Age of this Age Resolved Age Notes LastModified by Organization Details LastModified Time Mother Epilepsy MIGRATION.488 [id number] Not available 09/22/2022 18:05:27 Mother Hypertensive disorder MIGRATION.663 [id number] Not available 09/22/2022 18:05:28 Father Arthritis MIGRATION.424 [id number] Not available 09/22/2022 18:05:28 Father Hypertensive disorder MIGRATION.953 [id number] Not available 09/22/2022 18:05:28 Brother General health good MIGRATION.714 [id number] Not available 09/22/2022 18:05:28 Paternal Grandfather Diabetes mellitus MIGRATION.158 [id number] Not available 09/22/2022 18:05:28 Paternal Grandfather General health good MIGRATION.183 [id number] Not available 09/22/2022 18:05:28 Maternal Grandmother General health good MIGRATION.056 [id number] Not available 09/22/2022 18:05:28 Father Atrial fibrillation [email or web address] Not available 0 01/31/2023 14:06:54 Medical History Condition Response BLINDNESS N NERVE DISEASE N RHEUMATIC FEVER N BLADDER PROBLEMS N KIDNEY STONES N MRSA N OTHER # 1 Y POLIO N LUNG DISEASE/DISORDER N RADIATION / CHEMOTHERAPY N COPD N Other # 2 N BLOOD DISEASES N EAR OR HEARING PROBLEMS N MUMPS N BOWEL PROBLEMS Y DEPRESSION (INCLUDING POST ) N STROKE/TIA N ULCERS N BENIGN PROSTATIC HYPERPLASIA N MEASLES N MYOCARDIAL INFARCTION N OBESITY N GERD/NAUSEA N ANEURYSM N URINARY/BLADDER/KIDNEY PROBLEMS N CORONARY ARTERY DISEASE (CAD) N ADDICTION CONCERNS N ENDOMETRIOSIS N Impotence N USE OF BLOOD THINNERS N SKIN PROBLEMS N GASTROINTESTINAL DISORDER N PERIPHERAL VASCULAR DISEASE N MUSCLE,JOINT OR BONE PROBLEMS N GASTROINTESTINAL BLEEDING N BLOOD CLOTS N ASTHMA Y CATARACTS N ERECTILE DYSFUNCTION N VARICOSITIES N GI PROBLEMS N Low Testosterone N INFERTILITY N AIDS/HIV N CHEMOTHERAPY / RADIATION N LIVER DISEASE N MALE HYPOGONADISM N HYPERTENSION N Deficiency N TOURETTE'S N ANXIETY DISORDER Y BLOOD TRANSFUSION N ANEMIA/BLOOD DISORDER N CHRONIC EAR INFECTIONS N BRONCHITIS N TUBERCULOSIS N GLAUCOMA N FOOT PROBLEM N DIVERTICULITIS N SLEEP APNEA N CHICKENPOX N INFECTIOUS DISEASE N HEART ARRHYTHMIA N PROSTATE N INSOMNIA N HIGH CHOLESTEROL / HYPERLIPIDEMIA N HYPERTHYROIDISM N EYE PROBLEMS N EDEMA N CHRONIC PAIN SYNDROME N HYPOTHYROIDISM N CAROTID BLOCKAGE N CONSTIPATION N BACK / NECK PROBLEMS N HAVE YOU BEEN HOSPITALIZED OR SEEN IN [facility] IN THE PAST YEAR ? N ATHEROSCLEROSIS N BREAST PROBLEMS N DIALYSIS N ECZEMA Y OSTEOPOROSIS N ARTHRITIS N APPENDICITIS N DIABETES, TYPE N BAD TEETH N ENT N HEARTBURN / REFLUX N AUTISM SPECTRUM DISORDER (ASD) N HEPATITIS / LIVER DISEASE N GOUT N SLEEP DISORDER N ALZHEIMER'S DISEASE N Brain Problems N HERPES N DEMENTIA N HEADACHES/MIGRAINES N SEIZURES/EPILEPSY N VASCULAR DISEASE N PACEMAKER N Blood Disorder N DIZZINESS N HEART DISEASE/HEART PROBLEMS N KIDNEY DISEASE N MULTIPLE SCLEROSIS N CARDIAC ARRHYTHMIA N CANCER: SPECIFY N ATRIAL FIBRILLATION N Gall Stones N PULMONARY EMBOLISM N AUTOIMMUNE DISEASE N Gynecological History Statement/Question Response Abnormal Pap N Date of Last Pap Smear Current Control Method None Age at Menarche 14 Date of LMP 01/05/2021 Breast Problems no Obstetrics History GPAL:G 0 P 0 0 0 0 Immunizations Vaccine Type Date Status Note Provider Nam e and Address Organization Details Recorded Time COVID-19, mRNA, LNP-S, PF, 30 mcg/0.3 mL dose 09/26/2020 completed Not Available [facility] 06:22:10 COVID-19, mRNA, LNP-S, PF, 30 mcg/0.3 mL dose 09/06/2020 completed Not Available [facility] 06:22:10 HPV9 11/21/2007 completed Not Available [facility] 02/12/2023 06:22:10 HPV9 02/15/2007 completed Not Available [facility] 02/12/2023 06:22:10 HPV9 12/13/2006 completed Not Available [facility] 02/12/2023 06:22:10 Past Encounters Encounter ID Performer Location Encounter Start Date Encounter Closed Date Diagnosis/Indication Diagnosis SNOMED-CT Code Diagnosis ICD10 Code Diagnosis Note [id number] [facility] Internal Med Shailesh aguilar [address] [place] [address] [facility] [address] 12/30/2020 00:00:00 12/31/2020 07:52:53 [id number] _GABRIELLA_Mariajose IGRATION_ DEFAULT_1 _1 , 01/20/2021 00:00:00 01/20/2021 13:00:06 [id number] [facility] Pulmonolo gy [address] [address] 04/20/2021 00:00:00 04/20/2021 09:10:34 [id number] [facility] [address] [place] [address]., [address] [address] 09/14/2021 00:00:00 09/20/2021 16:44:49 [id number] [facility] [address] [address] 10/19/2021 00:00:00 10/25/2021 13:41:53 [id number] [facility] [address] [address] 11/16/2021 00:00:00 11/16/2021 17:53:32 [id number] [facility] [address] [address] 01/11/2022 00:00:00 01/18/2022 08:45:08 [id number] [facility] Shailesh [address], [place] [address] 02/25/2022 00:00:00 03/21/2022 17:03:24 [id number] [facility] [address], [address] [address] 04/15/2022 00:00:00 05/23/2022 22:03:34 [id number] [facility] [address] [address] 06/24/2022 00:00:00 06/24/2022 11:01:02 [id number] Josué Thomas MD [facility] [place] [address] 11/04/2022 14:53:03 11/04/2022 16:07:08 Low back pain 639520144 M54.50 Renewal of prescription [id number] Z76.0 [id number] [facility] [address], [address] [address] 01/31/2023 13:58:43 01/31/2023 15:16:35 Low back pain 795806315 M54.50 [id number] Taco Salmeron MD [facility] [address] [address] 08/04/2023 11:23:26 08/05/2023 08:35:35 Obstructive sleep apnea syndrome 62602990 G47.33 [id number] Taco Salmeron MD [facility] [address] [address] 10/27/2023 08:22:59 10/28/2023 08:53:14 Obstructive sleep apnea syndrome 48888278 G47.33 Health Concerns Section Related Observation LastModified by Organization Detai ls LastModified Time None Recorded Concern Status LastModified by Organization Details LastModified Time None Recorded Advance Directives Directive N: Payers Encounter Date Sequence Insurance Name Policy Number Policy Roland Covered Member ID Roland Member ID Guarantor Name 11/04/2022 1 [employer] [id number] Carlos A Conrad [id number] Kaleigh E Conrad 01/31/2023 1 UMR [id number] Carlos A Conrad [id number] Kaleigh E Conrad 08/04/2023 1 UMR [id number] Carlos A Conrad [id number] Kaleigh E Conrad 10/27/2023 1 UMR [id number] Carlos A Conrad [id number] Kaleigh E Conrad Notes Date Note Type Note Provider Name and Address Organization Details Recorded Time 11/04/2022 text/html Severe low back pain with no trauma does not really were going to her legs movement makes it worse Josué Thomas MD [address], [address], [place], [address], [employer] [facility] [employer] [facility] 11/14/2022 12:50:09 01/31/2023 text/html was doing better with therapy and then towards the end she decompensated now she has horrible spasm better back pain radiating to both legs numbness in both eyes no bowel or bladder incontinence terrible time standing up straight Josué Thomas MD [address], [address], [place], [address], [employer] [facility] [employer] 01/31/2023 22:32:08 08/04/2023 text/html Primary care/Ref erring provider: Josué Thomas MD CC: I only use the CPAP for 2 nights in the interim because I am not sure that I still have significant DARIEN. I did gain 20 lbs in the interim after I discontinued my weight loss medication, phentermine. At home since 2021, the patient uses a [employer]Med AirSense 10 autoset unit with heated humidification. The patient does not need the ramp to start low and go up slowly on the pressure anymore. There is some xerostomia in a.m. There is no hose/mask condensation with water.The patient wears a [employer] small AirFit N30i nasal mask without chin strap. There is no claustrophobia, no nostril/nose bridge irritation, no facial rash, no facial numbness, no nosebleeding.The patient feels more refreshed upon waking and daytime alertness is improved. Energy levels are sustained until early afternoon, around 1 pm.At home, the patient sleeps from 10 pm to 6:15 am and wakes up with an alarm.Snoring: heavy, since 2009sSnorting: noChoking: noCoughing: yesGasping: noGagging: noSighing: noWitnessed apnea: yesTwitching or jerking of leg(s), arm(s), body, head: noTeeth grinding: noTeeth clenching: noSleeptalking: noSleepwalking: noSleep crying: noBedwetting: noTongue/lip/gum/cheek biting: noSleeping with open mouth: yesSleep paralysis: noHypnagogic hallucinations: noHypnopompic hallucinations: noVivid dreams: yesDifficulty with sleep onset: noDifficulty with sleep maintenance: yesSleep interruptions: coughingPatient wakes up with: fatigue, xerostomiaDaytime cataplexy: noMorning hypersomnolence: yesAfternoon hypersomnolence: yesCaffeine sources in diet: coffee 2.5 cups per day, chocolate 1/2 candy bar per month, energy drink 1/3 can of Red Bull per dayAssociated medical and psychiatric conditions:Congestive heart failure: noCoronary artery disease: noMyocardial infarction: noHypertension: noStroke: noBronchial asthma: noChronic obstructive pulmonary disease: noDepression: yesBipolar disorder: noAnxiety: noPanic disorder: noPosttraumatic stress disorder: noAttention deficit and hyperactivity disorder: noObsessive Compulsive disorder: noSchizophrenia: noSchizoaffective disorder: noPersonality disorder: noChronic analgesic use: noChronic sedative/hypnotic use: noEPWORTH SLEEPINESS SCALE (ESS)CHANCE OF DOZING SCORE0 = would never doze1 = slight chance of dozing2 = moderate chance of dozing3 = high chance of dozingSITUATION AND CHANCE OF DOZINGSitting and reading - 3Watching television - 3Sitting inactive in a public place (e.g. a theater or meeting) - 1As a passenger in a car for an hour without a break - 0Lying down to rest in the afternoon when circumstances permit - 3Sitting and talking to someone - 0Sitting quietly after lunch without alcohol - 0In a car, while stopped for a few minutes in the traffic - 0TOTAL SCORE 10Subjectively, patient has a moderate chance of dozing. Taco Salmeron MD [address] [place] [address], [address], [facility] [employer] 08/04/2023 12:21:41 10/27/2023 text/html Primary care/Ref erring provider: Josué Thomas MD During the [facility] diagnostic sleep study on 09/28/23, AHI = 7, supine AHI = 10.At home since 08/04/23, the patient owns a ResMed AirSense 10 autoset unit with heated humidification. The patient does not need the ramp to start low and go up slowly on the pressure anymore. There is some xerostomia in a.m. There is no hose/mask condensation with water.The patient owns a [employer] small AirFit N30i nasal mask without chin strap. There is no claustrophobia, no nostril/nose bridge irritation, no facial rash, no facial numbness, no nosebleeding.The patient feels less refreshed upon waking and daytime alertness is mildly improved. Energy levels are sustained until early afternoon, around 1 pm.At home, the patient sleeps from 10 pm to 6:15 am and wakes up with an alarm.Snoring: heavy, since 2009sSnorting: noChoking: noCoughing: yesGasping: noGagging: noSighing: noWitnessed apnea: yesTwitching or jerking of leg(s), arm(s), body, head: noTeeth grinding: noTeeth clenching: noSleeptalking: noSleepwalking: noSleep crying: noBedwetting: noTongue/lip/gum/cheek biting: noSleeping with open mouth: yesSleep paralysis: noHypnagogic hallucinations: noHypnopompic hallucinations: noVivid dreams: yesDifficulty with sleep onset: noDifficulty with sleep maintenance: yesSleep interruptions: coughingPatient wakes up with: fatigue, xerostomiaDaytime cataplexy: noMorning hypersomnolence: yesAfternoon hypersomnolence: yesCaffeine sources in diet: coffee 2.5 cups per day, chocolate 1/2 candy bar per month, energy drink 1/3 can of Red Bull per dayAssociated medical and psychiatric conditions:Congestive heart failure: noCoronary artery disease: noMyocardial infarction: noHypertension: noStroke: noBronchial asthma: noChronic obstructive pulmonary disease: noDepression: yesBipolar disorder: noAnxiety: noPanic disorder: noPosttraumatic stress disorder: noAttention deficit and hyperactivity disorder: noObsessive Compulsive disorder: noSchizophrenia: noSchizoaffective disorder: noPersonality disorder: noChronic analgesic use: noChronic sedative/hypnotic use: noEPWORTH SLEEPINESS SCALE (ESS)CHANCE OF DOZING SCORE0 = would never doze1 = slight chance of dozing2 = moderate chance of dozing3 = high chance of dozingSITUATION AND CHANCE OF DOZINGSitting and reading - 2Watching television - 2Sitting inactive in a public place (e.g. a theater or meeting) - 0As a passenger in a car for an hour without a break - 1Lying down to rest in the afternoon when circumstances permit - 2Sitting and talking to someone - 0Sitting quietly after lunch without alcohol - 0In a car, while stopped for a few minutes in the traffic - 0TOTAL SCORE 7Subjectively, patient has a moderate chance of dozing. Taco Salmeron MD [address] [place] [address], [place], [address], [facility] 10/27/2023 09:13:12 OBGyn Episode No OBEpisode recorded.
--- OUTSIDE RECORDS SUMMARY | 2024-10-01 11:35 | XMS_ITS | Encounter Summary ---
Author Organization [facility] Address [address] [place] [address] Care Team Providers Care Naphthalene Operator Helper Name Role Phone Unavailable Primary Care Provider Unavailabl e Encounter Details Date Type Department Care Team (Late st Contact Info) Description 09/29/2024 External Device Data [facility] ABSTRACTION Provider, Abstract NO ADDRESS ON FILE Social History Tobacco Use Types Packs/Day Years Used Date Smoking Tobacco: Never Smokeless Tobacco: Never Comments No Sex and Gender Information Value Date Recorded Sex Assigned at Not on file Legal Sex Female 8:05 AM CDT Gender Identity Not on file Sexual Orientation Not on file documented as of this encounter Plan of Treatment Not on file documented as of this encounter Visit Diagnoses Not on filedocumented in this encounter
--- OUTSIDE RECORDS SUMMARY | 2024-10-01 11:35 | XMS_ITS | Patient Health Record ---
Author Organization [facility] [place] Address [address] [place] [address] Care Team Providers Care Pricing Manager Name Role Phone William Foss Unavailable [phone] ALLERGIES Allergen (clinical drug ingredient) Drug/Non Drug Allergy documented on EMR Reaction Allergy Type Onset Date Status Penicillin Unknown Drug Allergy Active REASON FOR REFERRAL No Information MEDICATIONS Medication SIG (Take, Route, Frequency, Duration) Notes Start Date End Date Status Paxil 20 MG 1 tablet in the morn ing Orally Once a day Active Albuterol Sulfate HFA 108 (90 Base) MCG/ACT 1 puff as needed Inhalation every 4 hrs Active Phentermine HCl 20mg Acti ve SOCIAL HISTORY Tobacco Use: Social History Observation Description Date Details (start date - stop date) Never Smoker NA - NA Sex Assigned At : Social History Observation Description Sex Assigned At Unknown Tobacco Use/Smoking Question Answer Notes Are you a nonsmoker PROBLEMS Problem Type ICD Code Onset Dates Problem Status W/U Status Risk SNOMED Code Notes Problem Lumbago with sciatica, right side (M54.41) Active confirmed Sciatica (58699957) Problem Lumbago with sciatica, left side (M54.42) Active confirmed Sciatica (50109030) Problem Lumbosacral radiculopathy (M54.17) Active confirmed Lumbosacral radiculopathy (0222775) PLAN OF TREATMENT No Information MEDICAL (GENERAL) HISTORY Medical History History ICD Code asthma anxiety
[2024-10-01 11:53] LABS: Basophils Percent Auto 0.3 % (0.2-1.2); Eosinophils Percent Auto 0.5 % (0-4.4); Hematocrit 35.6 % (37.0-47.0); Hemoglobin 11.6 g/dL (12.0-15.0); Immature Granulocyte Absolute 0.02 K/mm3 (0.00-0.031); Immature Granulocyte Percent A 0.3 % (0-0.5); Lymphocytes Percent Auto 17.1 % (18.3-44.2); Mean Corpuscular HGB Conc 32.6 g/dl (32-36); Mean Corpuscular Hemoglobin 31.1 pg (26-34); Mean Corpuscular Volume 95.4 fl (80-100); Mean Platelet Volume 11.8 fl (7.4-10.4); Monocytes Absolute Auto 0.5 K/mm3 (0.1-0.6); Monocytes Percent Auto 7.8 % (2.6-8.5); Neutrophils Absolute Auto 4.8 K/mm3 (1.3-6.7); Platelet Count Result 144 k/mm3 (150-375); Red Blood Count 3.73 M/mm3 (4.2-5.4); Red Cell Distribution Width 12.4 % (11.5-14.5); White Blood Count 6.4 K/mm3 (4.5-10.0)
[2024-10-01 12:05] LABS: Alanine Aminotransferase 30 U/L (6-35); Albumin Level 3.6 g/dL (3.5-5.1); Alkaline Phosphatase 53 U/L (38-126); Anion Gap 6 mmol/L (4-12); Aspartate Amino Transferase 20 U/L (14-36); Bilirubin,Total 0.1 mg/dL (0.2-1.3); Blood Urea Nitrogen 6 mg/dL (7-17); Calcium 8.8 mg/dL (8.4-10.2); Carbon Dioxide 24 mmol/L (22-30); Chloride 107 mmol/L (98-107); Estimated Glomerular Filt Rate > 60; Glucose 90 mg/dL (65-110); Potassium 4.4 mmol/L (3.4-5.0); Sodium 137 mmol/L (137-145)
== END 2024-10-01 12:40 | disposition home or self-care (01) ==
LOC: ANHOBPP 09:59
PROVIDERS: Admitting Provider Obstetrics & Gynecology; PCP Internal Medicine; Visit Provider Obstetrics & Gynecology
DX: O26.892 Other specified pregnancy related conditions, second trimester (principal); R10.9 Unspecified abdominal pain; R20.0 Anesthesia of skin; Z3A.27 27 weeks gestation of pregnancy
CPT/HCPCS: 36415; 76775; 80053; 81001; 85025; 87086; G0378; G0379

== ENCOUNTER 2024-12-03 16:39 | Observation (INO) | payer OTHER, SELFPAY ==
[2024-12-03 17:00] VITALS: BMI 30.8
--- NOTE | 2024-12-03 18:24 | OBADM ---
This patient, Cata Martines, admitted to the OB room Labor/Delivery/Recovery 102 for observation. Patient/family oriented to hospital policies and general routines including ID bracelet, bed and alarms, visiting hours, pain management, procedures, bathroom and other care routines, personal items, smoking policy, room service/diet, and visiting hours. Patient/Family are encouraged to report perceived risks to care and to ask questions if they do not understand what they are told or what they should do.
--- NOTE | 2024-12-04 07:58 | PM.OBTRLD ---
OB - Triage/Final Diagnosis Visit Information Date of evaluation: 12/03/24 Reason for evaluation: threatened labor Comments/Additional reasons for admission: I have assessed the risk for this patient, Cata Martines, and determined that she would benefit from observation care.
== END 2024-12-03 18:18 | disposition home or self-care (01) ==
PROVIDERS: Admitting Provider Obstetrics & Gynecology; PCP Internal Medicine; Visit Provider Student in an Organized Health Care Education/Training Program
DX: O47.03 False labor before 37 completed weeks of gestation, third trimester (principal); Z3A.36 36 weeks gestation of pregnancy
CPT/HCPCS: G0378; G0379

== ENCOUNTER 2024-12-28 16:46 | Inpatient (IN) | payer OTHER, SELFPAY ==
[2024-12-28] VITALS (43 sets, daily range): BP systolic 95–124; BP diastolic 52–76; PULSE 70–98; RESP 16; TEMP 36.5; O2SAT 92–100; BMI 30.8
--- OUTSIDE RECORDS SUMMARY | 2024-12-28 17:02 | XMS_ITS | Patient Health Record ---
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 Name Role Phone William Foss Unavailable [phone] Allergies Allergen (clinical drug ingredient) Drug/Non Drug Allergy documented on EMR Reaction Allergy Type Onset Date Status Penicillin Unknown Drug Allergy Active Reason For Referral No Information Medications Medication SIG (Take, Route, Frequency, Duration) Notes Start Date End Date Status Paxil 20 MG 1 tablet in the morn ing Orally Once a day Active Albuterol Sulfate HFA 108 (90 Base) MCG/ACT 1 puff as needed Inhalation every 4 hrs Active Phentermine HCl 20mg Acti ve Social History Tobacco Use: Social History Observation Description Date Details (start date - stop date) Never Smoker NA - NA Tobacco Use/Smoking Question Answer Notes Are you a nonsmoker Problems Problem Type SNOMED Code ICD Code Onset Dates Problem Status W/U Status Risk Notes Problem Sciatica (41814215) Lumbago with sciatica, right side (M54.41) Active confirmed Problem Sciatica (35806731) Lumbago with sciatica, left side (M54.42) Active confirmed Problem Lumbosacral radiculopathy (M54.17) Active confirmed Plan Of Treatment No Information Medical (General) History Medical History History ICD Code asthma anxiety
--- OUTSIDE RECORDS SUMMARY | 2024-12-28 17:02 | XMS_ITS | Data Portability ---
Author Organization [place] - S [employer] Main Office Address [address] [place] [address] Assessment Encounter Date Assessment Date Assessment LastModified by Organization Details LastModified Time 11/04/2022 11/04/2022 Will x-ray the back physical therapy tizanidine 4 mg q.h.s. she will report back by phone in 48-72 hours with update [email or web address] Not available 11/14/2022 12:43:56 01/31/2023 01/31/2023 Continue with e tizanidine she has now failed physical therapy will get an MRI of her lumbar spine [email or web address] Not available 01/31/2023 22:31:21 08/04/2023 08/04/2023 Assessment: Mild OSAHS, AHI = 9 Plan: The following were reviewed and explained to the patient: [facility] home sleep study 01/19/21 AHI = 9 [...] therapy. Patient will setup an appointment with [facility] for supplies and pressure adjustments. A major [...] Follow-up: 1 week after diagnostic sleep study [email or web address] Not available 08/04/2023 12:11:54 10/27/2023 10/27/2023 Assessment: Mild OSAHS, AHI = 7 Plan: The following were reviewed and explained to the patient: [facility] home sleep study 01/19/21 AHI = 9 [facility] diagnostic sleep study 09/28/23 AHI = 7, [...] therapy. Patient will setup an appointment with [facility] for supplies and pressure adjustments. A major [...] further management. Follow-up: 1 year, October 2024 [facility] Not available 10/27/2023 09:11:43 Plan of Treatment Reminders Order Date Submit Date Provider Last Modified By Organization Details Last Modified Time Details Appointments None recorded. Lab None recorded. Referral physical therapist referral 2022 023 [facility], [address], [place], [address], 3 09:12:02 Procedures None recorded. Surgeries None recorded. Imaging polysomnogr am, diagnostic, 6 yrs or older 2023 024 [facility], [address], [place], [address], 4 09:59:52 MRI, lumbar spine, w/o contrast - No auth required ref#[id number] 2022 023 GABRIELLA Not available 3 13:47:02 XR, lumbar spine 2022 023 cyahl Not available 3 09:03:07 Medication Orders paroxetine 20 mg tablet 2022 023 [email or web address] [id number], [address], [place], [id number], 3 16:09:47 Patient TargetsNo targets recorded. Patient InstructionsNo instructions recorded. Reason for Referral Physical Therapist Referral for Low back pain Referring Physician: Josué Thomas, Internal Medicine, Encounter Date: 11/04/2022 Results Created Date Observation Date Name Description Value Unit Range Abnormal Flag Note LastModifiedBy Organization Detail LastModifiedTime 11/05/19 23 XR, lumba r [facility] [address] [address] Patien t Name: KALEIGH TORRES Access ion #: [id number] Sex: F : 1994 5 Locati on: RA2 Attend ing Physic milla: CASSI THOMAS Orderi Physic milla: CASSI THOMAS Exam Date: 3:16 PM Exam Name: XR [...] spondy lolysi s. Page 1 of 2 [facility] Patimica t Name: KALEIGH TORRES Access ion #: [id number] Sex: F : 1994 5 Exam [...] 3:33 PM (CT) Page 2 of [address] (Imaging) [address] [place], [address], 05/07/2023 22:57:20 02/04/20 23 MRI, lumba r spine , w/o contr ast [facility] [address] [place] [address] Patimica t Name: KALEIGH TORRES Access ion #: [id number] Sex: F : 1994 3 Dictat ed By: Cassi [facility] Reece ing Physic milla: CASSI THOMAS Physic milla: [...] ral body height s are mainta ined. Enrichment Specialist ior elemen ts are intact . No [...] 1 [facility] [address] [address] Patien t Name: KALEIGH TORRES Access ion #: [id number] Sex: F : 1994 3 Dictat ed By: Cassi blancas Attend ing Physic milla: MELISSA CAMERON [facility] Physic milla: MELISSA CAMERON Exam Date: 2022 [...] at 2022 12:44: 45 PM Page 2 [facility] (Imaging) [address] [place], [address], 02/04/2023 11:04:19 10/04/19 24 09/28/2023 polys omnog tina, diagn ostic , 6 yrs or older No observ ation record ed. [facility] [address] [place], [address], 10/04/2023 09:59:53 Result Notes None recorded. Problems Name Problem SNOMED Code Status Onset Date Resolution Date Notes Provider Name and Address Organization Details Recorded Time Acne 28144087 Active 2021 Not Available [facility] 3 06:22:10 Infectious mononucleosis 884274068 Active Not Available [facility] 3 06:22:10 Anxiety 69152714 Active 2021 Not Available [facility] 3 06:22:10 Hyperlipidemi a 44506211 Active 2021 Not Available [facility] 3 06:22:10 Low back pain 468687705 Active 2022 Not Available [facility] 3 06:22:10 Obstructive sleep apnea syndrome 86604090 Active 2023 Taco Salmeron MD [address], [facility] [address], [place], [address] , [facility] [employer] [facility] 4 11:40:49 Notes:Medical History: Depre ssion Rhinitis Obesity with mild OSAHS, AHI = 9, 01/19/21, on autoCPAP c/o IVRC Obesity with mild OSAHS, AHI = 7, 01/19/21, on autoCPAP c/o IVRC Hyperlipidemia Psoriasis 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 Medical Equipment None Reported. Allergies Allergen ID Allergen Name Allergen Category Reaction Reaction Severity Criticality Documentation Date Start Date Code Code System Note Provider Name and Address Organization Details Recorded Time 52945 Product containin g penicilli n (product) medicatio n hives Not available Not available 09/22/2022 30784 8001 SNOMED Not Available [facility] 3 18:08:02 64212 influenza A (H5N1) virus vaccine monoval (18 yr +) Not available hives Not available Not available 09/22/2022 49943 UNK Not Available [facility] 3 18:08:03 Medications Name Sig Start Date [...] propionate 50 mcg/actuati on nasal spray,suspe nsion [place] 1 spray every day by intranasa l [...] Available Tri-Sprinte c (28) 0.18 mg(7)/0.215 mg(7)/0.25 mg(7)-0.035 mg tablet TK 1 T PO D 08/01 [...] Not Available Not Available Vitals Date Recorded Heart rate Respiratory rate Provider N nicole and Address Organization Details Last Updated DateTime 08/04/2023 66 /min 15 /min Taco Salmeron MD [address], [address], [place] [employer] 08/04/2023 12:08:52 Date Recorded Body height Body mass index (BMI) Body weight Body temperature Heart rate Oxygen saturation Oxygen saturation in Arterial blood by Pulse oximetry Systolic blood pressure Diastolic blood pressure Provider Name and Address Organization Details Last Updated DateTime 172.72 cm 31.5 kg/m2 68378.6 2 g 98.6 [degF] 66 /min 98 % 98 % 120 mm[Hg] 72 mm[Hg] Aliya Pena MA [employer] 4 11:53:06 Date Recorded Heart rate Respiratory rate Provider N nicole and Address Organization Details Last Updated DateTime 10/27/2023 75 /min 14 /min Taco Salmeron MD [address], [place] [address], [place], [address], [facility] [employer] 10/27/2023 09:04:48 Date Recorded Body height Body mass index (BMI) Body weight Body temperature Heart rate Oxygen saturation Oxygen saturation in Arterial blood by Pulse oximetry Systolic blood pressure Diastolic blood pressure Provider Name and Address Organization Details Last Updated DateTime 4 172.72 cm 30 kg/m2 69331.8 5 g 98.5 [degF] 75 /min 99 % 99 % 108 mm[Hg] 68 mm[Hg] Cristine Silva MA [place] [employer] [facility] [employer] 4 08:46:29 Date Recorded Body height Body mass index (BMI) Body weight Body temperature Heart rate Systolic blood pressure Diastolic blood pressure Provider Name and Address Organization Details Last Updated DateTime 3 172.72 cm 29.8 kg/m2 59165.1 g 98.3 [degF] 82 /min 124 mm[Hg] 80 mm[Hg] MICHAEL Carter DC [employer] [facility] [employer] 3 15:06:11 Date Recorded Body height Body mass index (BMI) Body weight Body temperature Heart rate Systolic blood pressure Diastolic blood pressure Provider Name and Address Organization Details Last Updated DateTime 3 172.72 cm 30.9 kg/m2 38628.2 5 g 98.7 [degF] 78 /min 118 mm[Hg] 70 mm[Hg] MICHAEL Carter DC [employer] [facility] [employer] [facility] 3 14:08:09 Date Recorded Body mass index (BMI) Heart rate Body height Oxygen saturation Oxygen saturation in Arterial blood by Pulse oximetry Heart rate Respiratory rate Body temperature Body weight Systolic blood pressure Diastolic blood pressure Provider Name and Address Organization Details Last Updated DateTime 2 28.5 kg/m2 76 /min 172.72 cm 98 % 98 % 76 /min 15 /min 97.8 [degF] 81516.2 1 g 110 mm[Hg] 70 mm[Hg] Not Available [employer] 3 18:05:38 Social History Question Answer Notes LastModified by Organizat ion Details LastModified Time Tobacco Smoking Status Never Smoker Not Available [facility] 09/22/2022 18:05:10 Do You Have An Advance Directive? No MIGRATION.02325 00077 Information not available 09/22/2022 Do You Wear A Helmet When Biking? No MIGRATION.27334 62713 Information not available 09/22/2022 What Is Your Level Of Caffeine Consumption? Heavy MIGRATION.25515 18722 Information not available 09/22/2022 How Much Tobacco Do You Chew? None MIGRATION.51723 26135 Information not available 09/22/2022 In The 14 Days Before Symptom Onset, Have You Had Close Contact With A Laboratory-confir med COVID-19 While That Case Was Ill? No MIGRATION.10406 52006 Information not available 09/22/2022 In The 14 Days Before Symptom Onset, Have You Had Close Contact With A Person Who Is Under Investigation For COVID-19 While That Person Was Ill? No MIGRATION.64452 39159 Information not available 09/22/2022 What Type Of Diet Are You Following? GLUTENFREE MIGRATION.20468 20656 Information not available 09/22/2022 Which Illicit Or Recreational Drugs Have You Used? No MIGRATION.22114 02559 Information not available 09/22/2022 What Is The Highest Grade Or Level Of School You Have Completed Or The Highest Degree You Have Received? [id number] MIGRATION.85079 19232 Information not available 09/22/2022 Do You Have An Electrostatic Air Filter? Yes MIGRATION.89623 13831 Information not available 09/22/2022 How Many Days Of Moderate To Strenuous Exercise, Like A Brisk Walk, Did You Do In The Last 7 Days? 5 MIGRATION.19086 43486 Information not available 09/22/2022 On Those Days That You Engage In Moderate To Strenuous Exercise, How Many Minutes, On Average, Do You Exercise? 45 MIGRATION.29857 13445 Information not available 09/22/2022 Have There Been Any Changes To Your Family Or Social Situation? No MIGRATION.83147 12411 Information not available 09/22/2022 What Is The Fluoride Status Of Your Home? Unknown MIGRATION.86499 08130 Information not available 09/22/2022 Are There Any Guns Present In Your Home? No MIGRATION.89779 89261 Information not available 09/22/2022 Do You Have A Humidifier? No MIGRATION.29275 11815 Information not available 09/22/2022 Do You Use Insect Repellent Routinely? No MIGRATION.30326 61533 Information not available 09/22/2022 Where Do You Live? Apartment MIGRATION.06286 64058 Information not available 09/22/2022 Do You Have A Medical Power Of Flap Curer? No MIGRATION.59902 42518 Information not available 09/22/2022 Do You Have Moisture Problems In Your Home? No MIGRATION.35665 98317 Information not available 09/22/2022 What Was The Date Of Your Most Recent Tobacco Screening? 10/27/2023 Information not available 10/27/2023 Have You Ever Been Counseled For Unhealthy Alcohol Use? No MIGRATION.35227 82046 Information not available 09/22/2022 Do You Have Any Pets? No MIGRATION.48260 97639 Information not available 09/22/2022 What Is Your Relationship Status? Single Engaged MIGRATION.33770 55961 Information not available 09/22/2022 Do You Use Your Seat Belt Or Car Seat Routinely? Yes MIGRATION.41942 55759 Information not available 09/22/2022 Do You Have Smoke And Carbon Monoxide Detectors In Your Home? Yes MIGRATION.87142 10518 Information not available 09/22/2022 Are You Passively Exposed To Smoke? No MIGRATION.94523 92210 Information not available 09/22/2022 Are There Any Smokers In Your House? No MIGRATION.74716 05829 Information not available 09/22/2022 How Much Tobacco Do You Smoke? No MIGRATION.10067 38608 Information not available 09/22/2022 What Types Of Sporting Activities Do You Participate In? Cycling Classes MIGRATION.82064 78888 Information not available 09/22/2022 Do You Use Sunscreen Routinely? No MIGRATION.68775 07264 Information not available 09/22/2022 Has Tobacco Cessation Counseling Been Provided? No Not Needed-nev er Smoked MIGRATION.96662 84262 Information not available 09/22/2022 How Many Years Have You Smoked Tobacco? 0 MIGRATION.61324 87090 Information not available 09/22/2022 Have You Recently Traveled Abroad? No MIGRATION.33857 48810 Information not available 09/22/2022 Do You Have Any Dietary Restrictions? No MIGRATION.49485 53865 Information not available 09/22/2022 Sex: Female Functional Status Question Answer Note LastModified by [employer] Details LastModified Time Do you use any illicit or recreational drugs? No MIGRATION.74704 81108 Information not available 09/22/2022 Do you or have you ever used any other forms of tobacco or nicotine? No MIGRATION.73552 79256 Information not available 09/22/2022 What is your level of alcohol consumption? Occasional MIGRATION.89252 77451 Information not available 09/22/2022 Do you or have you ever used smokeless tobacco? Never used smokeless tobacco MIGRATION.62798 46574 Information not available 09/22/2022 Have you been exposed to chemicals or toxins? 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 Never used electronic cigarettes MIGRATION.40789 99681 Information not available 09/22/2022 What is your exercise level? Heavy MIGRATION.52825 54397 Information not available 09/22/2022 Mental Status Question Answer Note LastModified by [employer] Details LastModified Time Do you feel stressed (tense, restless, nervous, or anxious, or unable to sleep at night)? [id number] MIGRATION.081252188 6 Information not available 09/22/2022 Family History Relationship Description Onset Age of this Age Resolved Age Notes LastModified by Organization Details LastModified Time Mother Epilepsy MIGRATION.650 8980188 Not available 09/22/2022 18:05:27 Mother Hypertensive disorder MIGRATION.903 8944422 Not available 09/22/2022 18:05:28 Father Arthritis MIGRATION.801 4801084 Not available 09/22/2022 18:05:28 Father Hypertensive disorder MIGRATION.430 9105765 Not available 09/22/2022 18:05:28 Brother General health good MIGRATION.587 1994308 Not available 09/22/2022 18:05:28 Paternal Grandfather Diabetes mellitus MIGRATION.490 6754795 Not available 09/22/2022 18:05:28 Paternal Grandfather General health good MIGRATION.249 3227998 Not available 09/22/2022 18:05:28 Maternal Grandmother General health good MIGRATION.986 6593348 Not available 09/22/2022 18:05:28 Father Atrial fibrillation [id number] Not available 0 01/31/2023 14:06:54 Medical History Condition Response NERVE DISEASE N BLINDNESS N RHEUMATIC FEVER N KIDNEY STONES N BLADDER PROBLEMS N MRSA N OTHER # 1 Y [...] HAVE YOU BEEN HOSPITALIZED OR SEEN IN [facility] IN THE PAST YEAR ? N ATHEROSCLEROSIS [...] mcg/0.3 mL dose 09/26/2020 completed Not Available [facility] 3 06:22:10 COVID-19, mRNA, LNP-S, PF, 30 mcg/0.3 mL dose 09/06/2020 completed Not Available [facility] 3 06:22:10 HPV9 11/21/2007 completed Not Available [facility] 02/12/2023 06:22:10 HPV9 02/15/2007 completed Not Available [facility] 02/12/2023 06:22:10 HPV9 12/13/2006 completed Not Available [facility] 02/12/2023 06:22:10 Past Encounters Encounter ID Performer Location Encounter Start Date Encounter Closed Date Diagnosis/Indication Diagnosis SNOMED-CT Code Diagnosis ICD10 Code Diagnosis Note [id number] Josué Thomas MD [facility] [address] [facility] [place] [address] 12/30/2020 00:00:00 12/31/2020 07:52:53 [id number] S_Histor ic_[facility] _ATHENA_M IGRATION_ DEFAULT_1 _1 , 01/20/2021 00:00:00 01/20/2021 13:00:06 [id number] Taco Salmeron MD S_G [address] [address] 04/20/2021 00:00:00 04/20/2021 09:10:34 [id number] Josué Thomas MD [facility] [address] [address] 09/14/2021 00:00:00 09/20/2021 16:44:49 [id number] Josué Thomas MD [facility] [address] [address] 10/19/2021 00:00:00 10/25/2021 13:41:53 [id number] Josué Thomas MD [facility] [address] [address] 11/16/2021 00:00:00 11/16/2021 17:53:32 [id number] Josué Thomas MD S_[facility] Internal Med [address], [address] [address] 01/11/2022 00:00:00 01/18/2022 08:45:08 [id number] Josué Thomas MD S_[facility] Internal Med [place] [address] [facility] , [place] [address] 02/25/2022 00:00:00 03/21/2022 17:03:24 [id number] Josué Thomas MD S_[facility] Internal Med [address] [address] 04/15/2022 00:00:00 05/23/2022 22:03:34 [id number] Taco Salmeron MD [facility] [address] [address] 06/24/2022 00:00:00 06/24/2022 11:01:02 [id number] Josué Thomas MD S_[facility] Internal Med [place] [address] [facility] , [place] [address] 11/04/2022 14:53:03 11/04/2022 16:07:08 Low back pain 728717824 M54.50 Renewal of prescription 594382628 Z76.0 [id number] Josué Thomas MD [facility] Internal Med [address] [address] 01/31/2023 13:58:43 01/31/2023 15:16:35 Low back pain 962810468 M54.50 [id number] Taco Salmeron MD [facility] [address] [address] 08/04/2023 11:23:26 08/05/2023 08:35:35 Obstructive sleep apnea syndrome 49451238 G47.33 [id number] Taco Salmeron MD S_[facility] [address] [address] 10/27/2023 08:22:59 10/28/2023 08:53:14 Obstructive sleep apnea syndrome 50966069 G47.33 Health Concerns Section Related Observation LastModified by Organization Detai ls LastModified Time None Recorded Concern Status LastModified by Organization Details LastModified Time None Recorded Advance Directives Directive N: Payers Encounter Date Sequence Insurance Name Policy Number Policy Roland Covered Member ID Roland Member ID Guarantor Name 11/04/2022 1 [employer] [id number] Carlos A Conrad [id number] Kaleigh E Conrad 01/31/2023 1 UMR [id number] Carlos A Conrad [id number] Kaleigh E Conrad 08/04/2023 1 UMR [id number] Carlos A Conrad [id number] Kaleigh E Conrad 10/27/2023 1 UMR [id number] Carlos A Conrad [id number] Kaleigh E Conrad Notes Date Note Type Note Provider Name and Address Organization Details Recorded Time 11/04/2022 text/html Severe low back pain with no trauma does not really were going to her legs movement makes it worse Josué Thomas MD [address], [place], [address], [employer] 11/14/2022 12:50:09 01/31/2023 text/html was doing better with therapy and then towards the end she decompensated now she has horrible spasm better back pain radiating to both legs numbness in both eyes no bowel or bladder incontinence terrible time standing up straight Josué Thomas MD [address], [place], [address], [employer] 01/31/2023 22:32:08 08/04/2023 text/html Primary care/Ref erring provider: Josué Thomas MD CC: I only use the CPAP for 2 nights in the interim because I am not sure that I still have significant DARIEN. I did gain 20 lbs in the interim after I discontinued my weight loss medication, phentermine.At home since 2021, the patient uses a [...] moderate chance of dozing. Taco Salmeron MD [address] [place] [address], [facility] [address], [place], [address], [facility] [employer] 08/04/2023 12:21:41 10/27/2023 text/html Primary care/Ref erring provider: Josué Thomas MD During the [facility] diagnostic sleep study on 09/28/23, AHI = [...] moderate chance of dozing. Taco Salmeron MD [address] [place] [address], [address], [place] [facility] [place] [facility] 10/27/2023 09:13:12 OBGyn Episode No OBEpisode recorded.
--- OUTSIDE RECORDS SUMMARY | 2024-12-28 17:02 | XMS_ITS | Clinical Summary ---
Author Organization [facility] Address [address] [facility] [place] [address] Care Team Providers Care Envelope Press Operator Name Role Phone Unavailable Primary Care Provider [...] Encounters Date Type Department Care Team Description 10/23/2024 External Device Data STL ABSTRACTION Provider, Abstract 09/29/2024 External Device Data STL ABSTRACTION Provider, [...] 9:31 AM CDT Height 175.3 cm (5' 9) 12/03/2023 9:31 AM CDT Body Mass Index 29.53 12/03/2023 9:31 AM CDT Plan of Treatment Health Maintenance Due Date Last Done Comments HEPATITIS B VACCINES (1 of 3 - 19+ 3-dose series) 2013 HPV/Cotest (21-29) 2015 INFLUENZA VACCINE (#1) 2024 CERVICAL CANCER SCREENING 2024 HPV/Cotest (30-65) 2024 PAP SMEAR 2024 DTAP/TDAP/TD VACCINES (2 - T d or Tdap) 12/02/2033 12/03/2023 HPV VACCINES Aged Out No longer eligi ble based on patient's age to complete this topic Insurance GENERIC PAYOR [address] CHOICE
--- OUTSIDE RECORDS SUMMARY | 2024-12-28 17:02 | XMS_ITS | Data Portability ---
Author Organization [facility] KIMBERLYBrittani Strauss Address [address] [facility] / [place] [address] Care Team Providers [facility] Attendant Name Role Phone JOSUÉ THOMAS Primary Care [...] withdrawal discussed see me in 6 months [email or web address] Not available 01/11/2024 22:42:18 04/16/2024 04/16/2024 we will switch to Lexapro 5 mg daily per her substation operator request. Follow up with me at regular appointment [email or web address] Not available 04/21/2024 14:09:15 Plan of Treatment Reminders Order Date Submit Date Provider Last Modified By Organization Details Last Modified Time Details Appointments None recorded. Lab None recorded. Referral None recorded. Procedures None recorded. Surgeries None recorded. Imaging None recorded. Medication Orders Lexapro 5 mg tablet 024 024 [email or web address] [id number], [address] [facility], [place], [place], [id number], 11:21:41 Patient TargetsNo targets recorded. Patient Instructions Encounter Date Encounter Id Patient Instructions Last Modified By Organization Details Last Modified Time 04/16/2024 [id number] A healthy lifestyle: care instructions [email or web address] Not available 04/21/2024 14:09:26 Reason for Referral None Reported. Results Created Date Observation Date Name Description Value Unit Range Abnormal Flag Note LastModifiedBy Organization Detail LastModifiedTime 04/12/20 24 04/12/2024 pap test, thinp rep, cervi natacha Pap, thinprep, cervical negati ve Not Available Not Available 13:16:27 10/02/19 25 10/01/2024 US, renal No observ ation record ed. [facility] [address], [place], [address], 10/02/2024 09:44:12 Result Notes None recorded. Problems Name Problem SNOMED Code Status Onset Date Resolution Date Notes Provider Name and Address Organization Details Recorded Time Anxiety 79329070 Active 024 Josué Thomas MD Attn: Accounting ,[address] [place], [address] , [place] - [facility] 11/10/2023 22:55:24 Asthma 880405584 Active 024 Josué Thomas MD Attn: Accounting ,[address] [place], [address] , [place] [facility] 11/10/2023 22:55:25 Problem Notes None recorded. Medical Equipment None Reported. Allergies Allergen ID Allergen Name Allergen Category Reaction Reaction Severity Criticality Documentation Date Start Date Code Code System Note Provider Name and Address Organization Details Recorded Time 032546 Product containin g penicilli n (product) medicatio n Not available Not available Not available 11/10/2023 91468 8001 SNOMED CHARANJIT Vasquez [place] - [facility] 4 10:18:42 456337 wheat gluten extract food Not available Not available Not available 11/10/2023 75957 81 RxNorm CHARANJIT Vasquez, [place] - [facility] 4 10:19:19 536104 influenza virus vaccine, specific Not available Not available Not available Not available 11/10/2023 25118 UNK CHARANJIT Vasquez, [place] - [facility] 4 10:25:03 Medications Name Sig Start Date Stop Date [...] Not Available Not Available No t Available Vitals Date Recorded Body height Body mass index (BMI) Body weight Oxygen saturation Oxygen saturation in Arterial blood by Pulse oximetry Heart rate Systolic blood pressure Diastolic blood pressure Provider Name and Address Organization Details Last Updated DateTime 4 177.8 cm 28.3 kg/m2 27231.7 g 100 % 100 % 70 /min 118 mm[Hg] 70 mm[Hg] Nisreen Clark [place] - [facility] 4 10:28:20 Date Recorded Body height Body mass index (BMI) Body weight Heart rate Oxygen saturation Oxygen saturation in Arterial blood by Pulse oximetry Systolic blood pressure Diastolic blood pressure Provider Name and Address Organization Details Last Updated DateTime 4 177.8 cm 28.1 kg/m2 96437.1 g 75 /min 99 % 99 % 110 mm[Hg] 68 mm[Hg] Estrella Jordan [place] - [facility] 4 12:19:21 Social History Question Answer Notes LastModified by Organizat ion Details LastModified Time Tobacco Smoking Status Never Smoker Nisreen Clark MA [facility], [place] - [facility] 11/10/2023 10:21:31 Do You Have An Advance Directive? No Information n ot available 11/10/2023 Are You Blind Or Do You Have Difficulty Seeing? No Information n ot available 11/10/2023 What Is Your Level Of Caffeine Consumption? Moderate Information not available 11/10/2023 In The 14 Days Before Symptom Onset, Have You Had Close Contact With A Laboratory-confirm ed COVID-19 While That Case Was Ill? No Information n ot available 04/16/2024 In The 14 Days Before Symptom Onset, Have You Had Close Contact With A Person Who Is Under Investigation For COVID-19 While That Person Was Ill? No Information not available 04/16/2024 Have You Been To An Area Known To Be High Risk For COVID-19? No Information not available 04/16/2024 Are You Deaf Or Do You Have Serious Difficulty Hearing? No Information not available 11/10/2023 What Type Of Diet Are You Following? REGULAR Information n ot available 11/10/2023 What Was The Date Of Your Most Recent Tobacco Screening? 04/16/2024 Information not available 04/16/2024 What Is Your Relationship Status? Information not available 11/10/2023 Do You Use Your Seat Belt Or Car Seat Routinely? Yes Information not available 11/10/2023 Do You Have Smoke And Carbon Monoxide Detectors In Your Home? Yes Information not available 11/10/2023 Do You Use Sunscreen Routinely? Yes Information not available 11/10/2023 Has Tobacco Cessation Counseling Been Provided? No Information not available 11/10/2023 Sex: Female Functional Status Question Answer Note LastModified by Organizat ion Details LastModified Time Do you use any illicit or recreational drugs? No Information not available 11/10/2023 Do you or have you ever used any other forms of tobacco or nicotine? No Information not available 11/10/2023 What is your level of alcohol consumption? Occasional Information not available 11/10/2023 Are you currently employed? Yes Information not available 11/10/2023 Are you able to care for yourself? Yes Information not available 11/10/2023 What is your occupation? [employer] Information not available 11/10/2023 What is your exercise level? Occasional Information not available 11/10/2023 Mental Status Question Answer Note LastModified by Organization D etails LastModified Time Do you feel stressed (tense, restless, nervous, or anxious, or unable to sleep at night)? GG0420-9 Information not available 11/10/2023 Family History Relationship Description Onset Age of this Age Resolved Age Notes LastModified by Organization Details LastModified Time Father Hypertensive disorder [email or web address] Not available 10/23 10:20:49 Mother Hypertensive disorder [email or web address] Not available 10/23 10:20:49 Mother Epilepsy [email or web address] Not availa ble 11/10/2023 10:21:11 Medical History Condition Response Coronary Artery Disease N Other Y High Blood Pressure N Atrial Fibrillation N Kidney or Bladder Problems N Thyroid Problems N GI Problems N Depression N COPD N Blood Clots N Skin Problems N Anemia N Heart Attack ([place]) N Anxiety Disorder Y Diabetes Y Muscle, Joint, or Bone Problems N Seizures/Epilepsy N Acid Reflux (GERD) N Cancer N Stroke N Asthma Y Allergies N High Cholesterol N Hepatitis N Liver Disease N Headaches N Heart Failure N Osteoporosis N Gynecological History Statement/Question Response Date of LMP 03/22/2024 LMP Approximate Obstetrics History GPAL:G 0 P 0 0 0 0 Past Encounters Encounter ID Performer Location Encounter Start Date Encounter Closed Date Diagnosis/Indication Diagnosis SNOMED-CT Code Diagnosis ICD10 Code Diagnosis Note [id number] Josué Thomas MD [facility] [employer] [facility] [place] [address] [place] [address] 11/10/2023 10:09:43 11/10/2023 10:53:55 Anxiety 65647060 F41.9 Asthma 402576084 J45.90 9 [id number] Josué Thomas MD [facility] [employer] [facility] [place] [address] [place] [address] 04/16/2024 11:43:06 04/16/2024 13:27:13 Overweight 125819615 E66.3 Anxiety 08966735 F41.9 Health Concerns Section Related Observation LastModified by Organization Detai ls LastModified Time None Recorded Concern Status LastModified by Organization Details LastModified Time None Recorded Advance Directives Directive N: Payers Encounter Date Sequence Insurance Name Policy Number Policy Roland Covered Member ID Roland Member ID Guarantor Name 11/10/2023 1 [facility] [id number] Cata Jones Conrad [id number] Cata Martines 04/16/2024 1 [facility] [id number] Carlos Leggettuse [id number] Cata Martines Notes Date Note Type Note Provider Name and Address Organization Details Recorded Time 11/10/2023 text/html 28-year-old slee p apnea CPAP anxiety asthma overall doing fine would like to start coming off the Paxil asthma stable sleep apnea doing okay Josué Thomas MD Attn: Accounting[address] [place], [address], [facility] 01/11/2024 22:42:21 04/16/2024 text/html she did see substation operator and was told that they would prefer her to be off of Paxil and on Lexapro and the patient would like to do that as she is going to be contemplating starting a family soon Josué Thomas MD Attn: Accounting[address] [place], [address], [facility] [place] 04/21/2024 14:09:28 OBGyn Episode No OBEpisode recorded.
--- NOTE | 2024-12-28 17:16 | LDADM ---
This patient, Cata Martines, was admitted to Labor/Delivery/Recovery 108 on 12/28/24 at 16:46. Plans for labor, pain management and were discussed with patient. Patient/family oriented to hospital policies and general routines including ID bracelet, bed and alarms, visiting hours, pain management, procedures, bathroom and other care routines, personal items, smoking policy, room service/diet and guest tray routines, security routines, and visiting hours. Patient/Family are encouraged to report perceived risks to care and to ask questions if they do not understand what they are told or what they should do. See OBIX for further documentation.
[2024-12-28 17:44] LABS: Hematocrit 34.6 % (37.0-47.0); Hemoglobin 11.5 g/dL (12.0-15.0); Mean Corpuscular HGB Conc 33.2 g/dl (32-36); Mean Corpuscular Hemoglobin 30.5 pg (26-34); Mean Corpuscular Volume 91.8 fl (80-100); Mean Platelet Volume 12.3 fl (7.4-10.4); Platelet Count Result 136 k/mm3 (150-375); Red Blood Count 3.77 M/mm3 (4.2-5.4); Red Cell Distribution Width 12.9 % (11.5-14.5); White Blood Count 8.7 K/mm3 (4.5-10.0)
[2024-12-28] MEDS: DINOPROSTONE 10 MG VAG INSERT VAGINAL (18:06)
[2024-12-28 18:13] LABS: Atypical Lymphocytes Present; Band Neutrophils Percent 1 % (0-6); Basophils Percent Manual 0 % (0-1); Eosinophils Percent Manual 0 % (0-4); Lymphocytes Absolute Manual 2.26 K/mm3 (1.1-4.5); Lymphocytes Percent Manual 26 % (18-44); Monocytes Absolute Manual 0.52 K/mm3 (0.1-0.90); Monocytes Percent Manual 6 % (3-9); Neutrophils Absolute Manual 5.91 K/mm3 (1.3-6.7); Neutrophils Percent Manual 67 % (46-73); Total Cells Counted 100
[2024-12-28 18:14] LABS: Platelet Estimate Slightly Decreased (Adequate)
[2024-12-28 18:27] LABS: Syphilis IgG/IgM Antibody Non-Reactive (Nonreactive)
[2024-12-28 18:41] LABS: HIV 1/2 Ab P24 Ag Result Negative (Negative)
[2024-12-28] MEDS: LACTATED RINGERS 500 ML 999 ML IV CONT (22:01)
[2024-12-28] MEDS: LACTATED RINGERS 1,000 ML 125 ML IV CONT (23:22)
[2024-12-29] VITALS (62 sets, daily range): BP systolic 84–129; BP diastolic 39–72; PULSE 66–121; RESP 16–18; TEMP 36.3–37.4; O2SAT 97–100
[2024-12-29] MEDS: OXYTOCIN 30 UNITS/NS 500 ML 30 UNITS/500 ML BAG IV CONT (00:30)
[2024-12-29] MEDS: VANCOMYCIN 1,750 MG/NS 500 ML 1,750 MG/500 ML BAG 250 MG IVPB (00:30)
[2024-12-29] MEDS: TERBUTALINE SULFATE 1 MG/ML VIAL 0.25 MG SUB-Q (01:40)
[2024-12-29] MEDS: FAMOTIDINE 20 MG/2 ML VIAL (01:47)
--- NOTE | 2024-12-29 01:53 | P.HP_ITS ---
H&P: HPI History of Present Illness Date/Time: 12/29/24 01:53 Chief Complaint: induction of labor Narrative: Cata is a 29yo @ 39.6wks who presented for elective IOL. She had cervidil placed and a 4min decel was had down to the 70s. The cervidil was removed and had return to baseline. Low dose pitocin was started and after ~30 minutes, 7min prolonged decel down to the 70's occurred again; pitocin was held, she was given terb, and IVF and fetus slowly returned back to normal. Review of Systems Constitutional: Constitutional: Denies chills, Denies fever(s) and Denies headache(s) Eyes: Eyes: Denies change in vision ENT: Denies headache(s) Cardiovascular: Cardiovascular: Denies chest pain and Denies dyspnea Respiratory: Respiratory: Denies dyspnea Genitourinary: Genitourinary: Denies abnormal vaginal bleeding and Denies vaginal discharge Neurologic: Denies headache(s) Psychiatric: Psychiatric: Denies anxiety and Denies depression [facility] Past Medical History Medical History Autoimmune disease Asthma Sleep apnea Lymphadenopathy Eczema Anxiety disorder Family History Family History Other Diabetes mellitus Heart disease Hypertension Social History Social History Smoking status: Never smoker Second hand tobacco smoke exposure: No Alcohol intake: former Alcohol use details: prior to Substance use: never Substance use type: does not use Do You Feel Safe in your Home?: Yes Lack of Transportation: No Lack of Food: Never True Current Housing: I Have Housing Concerned About Future Housing: No Difficulty Paying Gas/Electric Bills: No Difficulty Paying for Meds: No Currently Unemployed: No Education: Master's Degree or Higher Difficulty w/ Childcare or Family Care: No Living arrangements: with family Occupation/Education: occupation Gender identity (if verbalized by the patient): Female Sexual Orientation (if Verbalized by the Patient): Straight or Heterosexual Spiritual care concerns: No Meds Home Medications and Allergies Home Medications ?Medication ?Instructions ?Recorded ?Confirmed ?Type escitalopram oxalate 5 mg tablet 5 mg PO PRN anxiety 05/10/24 12/27/24 History vits no.126-ferrous fum tablet PO 05/23/24 12/27/24 History 28 mg iron-folic acid 800 mcg tablet (Classic ) albuterol 90 mcg-budesonide 80 2 inh inhalation ONCE 07/31/24 12/27/24 History mcg/actuation HFA aerosol inhaler Allergies Allergy/AdvReac Type Severity Reaction Status Date / Time Penicillins Allergy Mild HIVES Verified 12/28/24 17:29 flu vaccine Allergy Severe Hives Uncoded 12/28/24 17:29 Vital Signs Vital Signs - 24 hr 12/28/24 17:11 12/28/24 17:14 12/28/24 17:16 Temperature Pulse Rate 82 Respiratory Rate Blood Pressure 113/73 Pulse Oximetry 100 100 Oxygen Delivery 12/28/24 17:21 12/28/24 17:26 12/28/24 17:31 Temperature Pulse Rate Respiratory Rate Blood Pressure Pulse Oximetry 100 99 100 Oxygen Delivery 12/28/24 17:32 12/28/24 17:37 12/28/24 17:42 Temperature Pulse Rate Respiratory Rate Blood Pressure Pulse Oximetry 100 100 100 Oxygen Delivery 12/28/24 17:47 12/28/24 17:49 12/28/24 17:52 Temperature Pulse Rate Respiratory Rate Blood Pressure Pulse Oximetry 100 92 Oxygen Delivery Room Air 12/28/24 17:57 12/28/24 18:02 12/28/24 18:07 Temperature Pulse Rate Respiratory Rate Blood Pressure Pulse Oximetry 100 98 100 Oxygen Delivery 12/28/24 18:12 12/28/24 18:17 12/28/24 20:25 Temperature Pulse Rate 78 71 Respiratory Rate Blood Pressure 124/76 117/73 Pulse Oximetry 100 Oxygen Delivery 12/28/24 22:02 12/28/24 22:07 12/28/24 22:12 Temperature Pulse Rate 76 Respiratory Rate Blood Pressure 115/63 Pulse Oximetry 95 100 100 Oxygen Delivery 12/28/24 22:17 12/28/24 22:22 12/28/24 22:27 Temperature Pulse Rate Respiratory Rate Blood Pressure Pulse Oximetry 100 100 100 Oxygen Delivery 12/28/24 22:30 12/28/24 22:32 12/28/24 22:37 Temperature 97.7 F Pulse Rate Respiratory Rate 16 Blood Pressure Pulse Oximetry 100 100 Oxygen Delivery 12/28/24 22:42 12/28/24 22:47 12/28/24 22:52 Temperature Pulse Rate Respiratory Rate Blood Pressure Pulse Oximetry 100 100 100 Oxygen Delivery 12/28/24 22:55 12/28/24 23:01 12/28/24 23:06 Temperature Pulse Rate Respiratory Rate Blood Pressure Pulse Oximetry 100 100 100 Oxygen Delivery 12/28/24 23:11 12/28/24 23:16 12/28/24 23:20 Temperature Pulse Rate Respiratory Rate Blood Pressure Pulse Oximetry 100 100 100 Oxygen Delivery 12/28/24 23:23 12/28/24 23:25 12/28/24 23:30 Temperature Pulse Rate 76 Respiratory Rate Blood Pressure 95/52 L Pulse Oximetry 100 100 Oxygen Delivery 12/28/24 23:35 12/28/24 23:40 12/28/24 23:45 Temperature Pulse Rate Respiratory Rate Blood Pressure Pulse Oximetry 100 100 100 Oxygen Delivery 12/28/24 23:50 12/28/24 23:55 12/29/24 00:00 Temperature Pulse Rate Respiratory Rate Blood Pressure Pulse Oximetry 100 99 100 Oxygen Delivery 12/29/24 00:02 12/29/24 00:07 12/29/24 00:12 Temperature Pulse Rate Respiratory Rate Blood Pressure Pulse Oximetry 97 98 98 Oxygen Delivery 12/29/24 00:17 12/29/24 00:22 12/29/24 00:27 Temperature Pulse Rate Respiratory Rate Blood Pressure Pulse Oximetry 97 97 97 Oxygen Delivery 12/29/24 00:32 12/29/24 00:37 12/29/24 00:42 Temperature Pulse Rate Respiratory Rate Blood Pressure Pulse Oximetry 98 98 98 Oxygen Delivery 12/29/24 00:47 12/29/24 00:52 12/29/24 00:58 Temperature Pulse Rate Respiratory Rate Blood Pressure Pulse Oximetry 99 98 98 Oxygen Delivery 12/29/24 01:00 12/29/24 01:03 12/29/24 01:04 Temperature 97.4 F L Pulse Rate 71 Respiratory Rate 18 Blood Pressure 117/68 Pulse Oximetry 98 98 Oxygen Delivery 12/29/24 01:09 12/29/24 01:14 12/29/24 01:19 Temperature Pulse Rate Respiratory Rate Blood Pressure Pulse Oximetry 99 99 98 Oxygen Delivery 12/29/24 01:24 12/29/24 01:29 12/29/24 01:34 Temperature Pulse Rate Respiratory Rate Blood Pressure Pulse Oximetry 98 99 97 Oxygen Delivery 12/29/24 01:39 12/29/24 01:44 12/29/24 01:49 Temperature Pulse Rate Respiratory Rate Blood Pressure Pulse Oximetry 98 99 98 Oxygen Delivery Exam Const: General: cooperative, no acute distress and obese Nutritional Appearance: obese Orientation/consciousness: patient oriented x3 Resp: Effort & Inspection: normal respiratory effort Cardio: Rate: regular rate GI: GI Palp: No abdominal tenderness : Other: FHT's: 130's/ mod mojgan/ + accels/ prolonged decels down to 70s- cat 2 TOCO: irregular ctxs Cervix: 1.5/thick/high Membranes: intact Presentation: cephalic Skin: General skin exam: normal color Neuro: General: patient oriented x3 Extrem: General: normal to inspection Psych: Appearance: grossly normal Affect: normal affect Attitude: cooperative H&P: Results Labs Labs: Short CBC 12/28/24 Range/Units 17:36 WBC 8.7 (4.5-10.0) K/mm3 Hgb 11.5 L (12.0-15.0) g/dL Hct 34.6 L (37.0-47.0) % Plt Count 136 L (150-375) k/mm3 Assessment and Plan Assessment and plan (1) Prolonged heart deceleration: Status: Acute Plan - cervidil was in place for ~4 hours and had to be removed - prolonged decel then occurred again with initiation of low dose pitocin - proceed with primary low transverse section due to intolerance to labor - risks and benefits discussed in detail - ancef 2g iv once
--- NOTE | 2024-12-29 01:58 | WPDHPUPDATE1 ---
History and Physical Update Update Date/Time: 12/29/24 01:58 History and Physical has been reviewed, including an updated exam of the patient. There are NO changes in the patient's condition. Risks, benefits, and alternatives have been discussed and questions answered. Patient agrees to proceed with procedure.
--- NOTE | 2024-12-29 02:33 | S_PTH ---
PATIENT: Cata Martines LOC: [facility] U#:[id number] AGE/SX: 29/F ROOM: 281 RE12/28/[address]: Melissa Powers MD : 1995 BED: 00 DIS: 12/31/2024 SPEC #: [id number] RECD: 12/31/24 07:26 STATUS: RICARDO REQ #: [id number] DAVY: 12/29/24 02:[address]: Melissa Powers DEPT: [facility] Surgical RECD BY: Cristy Alvares ENTERED: 12/31/24 07:26 SP TYPE: Surgical OTHR DR: UNKNOWN,DOCTOR Tissues: A - Placenta Procedures: Hematoxylin and Eosin Stain Gross and Microscopic Level 5
--- NOTE | 2024-12-29 02:59 | W.PM.OBCSD ---
OB - Delivery Note Procedure Delivery date: 12/29/24 Pre-op diagnosis: Elective Induction of Labor, Decelerations and Positive Group B Strep (GBS) Post-op Diagnosis: Same Induction method: Per Cervidil Protocol (removed after 4 hours) Delivery augmentation: Pitocin (only 30 minutes before additional prolonged deceleration occurred) Delivery monitor: External FHT and External Uterine Prior to decision for section, ACOG/SM labor guidelines were considered and discussed with the patient and staff. Decision made to proceed with the section.: Yes Procedure Performed: Primary Primary branch: low cervical, transverse Surgeon: Melissa Powers MD Anesthesia type: Spinal Description of Procedure/Findings: Male infant, direct OP/left hand by face, clear fluid, normal uterus/tubes/ovaries. Good hemostasis at end of case. Specimen: Yes Estimated Blood Loss: 585 Pathology: Yes (placenta) Complications: No immediate complications Condition: Stable Disposition: Floor Baby Date of : 12/29/24 Time of : 02:31 Gestational Age by Date: 39 (.6) gender: Male Weight (pounds): 7 Weight (ounces): 0 presentation: vertex position: Other (direct OP) Placenta delivery description: Expressed Cord Vessel Description: 3 Vessels and Clamped/Cut score one minute: 8 score five minutes: 9 Narrative: Caat was counseled on all risks and benefits in detail and agreed to proceed with section. She was taken to the operating room where spinal was placed. She was then prepped and draped in the normal sterile fashion. She received 2g Ancef and a time out was performed. A Pfannenstiel incision was made in the skin and carried down to the underlying fascia. The fascia was nicked on either side of the midline and the fascial incision was extended laterally and superiorly using curved Guzman scissors. The fascia was then elevated using Jeramie clamps and the underlying rectus muscles were dissected off the fascia, superiorly and inferiorly. The rectus muscles were then in the midline and the peritoneum was entered bluntly. Once adequate exposure was obtained, a Mobius self retractor was placed within the abdomen. A bladder flap was created. A low transverse incision was made on the lower uterine segment and clear fluid was noted. The occiput was brought to the hysterotomy and after 1 minute of attempting to delivery the head, a Kiwi vacuum was placed and with one pull, the head was delivered. The shoulders and body then followed without complications. The had spontaneous cry and the mouth and nose were bulb suctioned. The cord was clamped and cut and the infant was handed off to the awaiting pediatric nurse. A segment of the cord was collected for cord gases. The remaining cord blood was collected for typing. With Pitocin infusing, the placenta delivered with gentle traction on the cord without complications. The uterus was then cleared out of all clots and debris using a clean, moist lap. The hysterotomy was then repaired in a running fashion using 0 Vicryl. A second layer imbricating suture was then made using 0 Vicryl. The hysterotomy was found to be hemostatic and good uterine tone was noted. The bilateral adnexa were examined and found to be normal. The pelvis was cleared of all clots and fluid. The Mobius retractor was removed from the abdomen. The peritoneum, muscle, and fascia were examined and made hemostatic with Bovie cautery. The fascia was then repaired using a 0 Vicryl suture in a running fashion. The subcutaneous tissue was then irrigated and made hemostatic with Bovie cautery. The subcutaneous tissue was then reapproximated using 2-0 Vicryl. The skin was then closed using 4-0 Monocryl in a running subcuticular fashion. A Mepilex dressing was placed over the incision. Sponge, lap, needle and instrument counts were correct at the end of the procedure x2. The patient tolerated the procedure well and was taken to recovery in a stable condition.
--- NOTE | 2024-12-29 03:16 | P.PNAN_ITS ---
Anes - Initial Pre Proc Eval Procedure: Operation Date: 12/29/24 01:45 Proposed Procedures p Section - Melissa Powers MD Date/Time: 12/29/24 03:16 Surgeon: Melissa Powers MD Pre Op Diagnosis: Term IUP in labor, intolerance to labor Pre Op Diagnosis: EIL Patient Data Age: 29 Gender: F Height: 1.73 m Weight: 92 kg Last Vital Signs Temp 36.3 C L 12/29/24 01:00 Pulse 71 12/29/24 01:04 Resp 18 12/29/24 01:00 BP 117/68 12/29/24 01:04 Pulse Ox 100 12/29/24 03:11 O2 Del Method Room Air 12/28/24 17:49 Allergies Allergy/AdvReac Type Severity Reaction Status Date / Time Penicillins Allergy Mild HIVES Verified 12/28/24 17:29 flu vaccine Allergy Severe Hives Uncoded 12/28/24 17:29 Home Medications ?Medication ?Instructions ?Recorded ?Confirmed ?Type escitalopram oxalate 5 mg tablet 5 mg PO PRN anxiety 05/10/24 12/27/24 History vits no.126-ferrous fum tablet PO 05/23/24 12/27/24 History 28 mg iron-folic acid 800 mcg tablet (Classic ) albuterol 90 mcg-budesonide 80 2 inh inhalation ONCE 07/31/24 12/27/24 History mcg/actuation HFA aerosol inhaler Laboratory Tests 12/28/24 17:36 WBC 8.7 K/mm3 (4.5-10.0) RBC 3.77 L M/mm3 (4.2-5.4) Hgb 11.5 L g/dL (12.0-15.0) Hct 34.6 L % (37.0-47.0) MCV 91.8 fl (80-100) MCH 30.5 pg (26-34) MCHC 33.2 g/dl (32-36) RDW 12.9 % (11.5-14.5) Plt Count 136 L k/mm3 (150-375) MPV 12.3 H fl (7.4-10.4) Immature Gran % (Auto) Not Reportable Neut % (Auto) Not Reportable Lymph % (Auto) Not Reportable [place] % (Auto) Not Reportable Eos % (Auto) Not Reportable Baso % (Auto) Not Reportable Lymph # (Auto) Not Reportable [place] # (Auto) Not Reportable Eos # (Auto) Not Reportable Baso # (Auto) Not Reportable Abs Immat Gran (auto) Not Reportable Absolute Neuts (auto) Not Reportable Absolute Nucleated RBC Not Reportable Total Counted 100 Neutrophils % (Manual) 67 % (46-73) Band Neutrophils % 1 % (0-6) Lymphocytes % (Manual) 26 % (18-44) Monocytes % (Manual) 6 % (3-9) Eosinophils % (Manual) 0 % (0-4) Basophils % (Manual) 0 % (0-1) Nucleated RBC % Not Reportable Abs Neuts (Manual) 5.91 K/mm3 (1.3-6.7) Abs Lymphs (Manual) 2.26 K/mm3 (1.1-4.5) Abs Monocytes (Manual) 0.52 K/mm3 (0.1-0.90) Absolute Eos (Manual) 0.00 L K/mm3 (0.02-0.50) Abs Basophils (Manual) 0.00 K/mm3 (0.0-0.1) Atypical Lymphocytes Present Platelet Estimate Slightly decreased (Adequate) Schistocytes Not Reportable Syphilis IgG/IgM Ab Non-reactive (Nonreactive) HIV 1&2 Ab/P24 Ag 4thGn Negative (Negative) Blood Type O Positive Antibody Screen Negative : gestational age (, YI 12/30/24) Patient hx anesthesia problems: none Family hx anesthesia problems: none Results Review: All pre-operative results and documents have been reviewed as part of the pre- operative evaluation. ON LICENSE OF [facility] Past Medical History Medical History Autoimmune disease Asthma Sleep apnea Lymphadenopathy Eczema Anxiety disorder Family History Family History Other Diabetes mellitus Heart disease Hypertension Social History Social History Smoking status: Never smoker Second hand tobacco smoke exposure: No Alcohol intake: former Alcohol use details: prior to Substance use: never Substance use type: does not use Do You Feel Safe in your Home?: Yes Lack of Transportation: No Lack of Food: Never True Current Housing: I Have Housing Concerned About Future Housing: No Difficulty Paying Gas/Electric Bills: No Difficulty Paying for Meds: No Currently Unemployed: No Education: Master's Degree or Higher Difficulty w/ Childcare or Family Care: No Living arrangements: with family Occupation/Education: occupation Gender identity (if verbalized by the patient): Female Sexual Orientation (if Verbalized by the Patient): Straight or Heterosexual Spiritual care concerns: No Comments Late emtry, called for emergent c section due to decreased heart tones Anes - Eval Final PreProcedure Day of Procedure 12/29/24 03:16 Patient weight: normal Heart: regular rate and rhythm Lungs: normal air movement Airway: Mallampati scale class II Neurological: alert and oriented Last oral intake: 2 hours ASA classification: II Emergent: yes Anesthetic plan: proceed Anesthesia type and monitoring: regional spinal Results Review: All pre-operative results and documents have been reviewed as part of the pre- operative evaluation. Informed Consent: The patient's anesthetic plan and its attendant risks and benefits were discussed with the patient/family/POA. Questions were solicited and answers provided to the satisfaction of the patient/family/POA.
[2024-12-29] MEDS: ACETAMINOPHEN 500 MG TABLET 1000 MG PO (04:35)
[2024-12-29] MEDS: OXYTOCIN 30 UNITS/NS 500 ML 30 UNITS/500 ML BAG 125 UNITS IV CONT (04:57)
--- NOTE | 2024-12-29 05:16 | OBPPTRN ---
Patient transferred to post room #281 via stretcher. Support person present. Oriented to unit, room, information board, rooming in, admission packet and security measures. Patient verbalizes understanding.
[2024-12-29] MEDS: ONDANSETRON INJ 4 MG/2 ML VIAL IV PUSH (05:50)
[2024-12-29] MEDS: METOCLOPRAMIDE HCL INJ 10 MG/2 ML VIAL IV PUSH (06:38)
[2024-12-29] MEDS: SCOPOLAMINE 1 MG PATCH 1 PATCH TRANSDERM (06:38)
[2024-12-29] MEDS: [UNRECOGNIZED DRUG - REMARK] 1 EACH XX (07:00)
[2024-12-29] MEDS: SIMETHICONE 80 MG TAB.CHEW PO ×3 (07:57→17:46)
[2024-12-29] MEDS: ACETAMINOPHEN 325 MG TABLET 650 MG PO ×3 (07:58→20:03)
[2024-12-29] MEDS: KETOROLAC 15 MG/ML VIAL (*BKC) IV PUSH ×3 (07:58→20:02)
[2024-12-29] MEDS: DOCUSATE SODIUM 100 MG CAPSULE PO ×2 (07:58→17:46)
[2024-12-29] MEDS: MULTIVIT/MIN/PREN/FOL AC/IRON TABLET 1 TAB PO (07:59)
[2024-12-29] MEDS: POLYSACCHARIDE IRON COMPLEX 150 MG CAPSULE PO (07:59)
--- NOTE | 2024-12-29 09:10 | P.PNOB_ITS ---
OB - PN: Subj Subjective Date/time seen: 12/29/24 09:10 Narrative: POD#0 Cata reports doing ok today. She had multiple episodes of vomiting after her c- section; scopolamine patch seems to be helping. Her bleeding is light. Her pain is controlled. She has tolerated some regular diet. She has passed gas. Kaba catheter is still in place. She did get up to the chair. She denies any issues with her incision. She is bottle feeding. OB - PN: Obj Data Labs 12/28/24 17:36 Labs: Laboratory Results - last 24 hr 12/28/24 17:36 WBC 8.7 RBC 3.77 L Hgb 11.5 L Hct 34.6 L MCV 91.8 MCH 30.5 MCHC 33.2 RDW 12.9 Plt Count 136 L MPV 12.3 H Immature Gran % (Auto) Not Reportable Neut % (Auto) Not Reportable Lymph % (Auto) Not Reportable [place] % (Auto) Not Reportable Eos % (Auto) Not Reportable Baso % (Auto) Not Reportable Lymph # (Auto) Not Reportable [place] # (Auto) Not Reportable Eos # (Auto) Not Reportable Baso # (Auto) Not Reportable Abs Immat Gran (auto) Not Reportable Absolute Neuts (auto) Not Reportable Absolute Nucleated RBC Not Reportable Total Counted 100 Neutrophils % (Manual) 67 Band Neutrophils % 1 Lymphocytes % (Manual) 26 Monocytes % (Manual) 6 Eosinophils % (Manual) 0 Basophils % (Manual) 0 Nucleated RBC % Not Reportable Abs Neuts (Manual) 5.91 Abs Lymphs (Manual) 2.26 Abs Monocytes (Manual) 0.52 Absolute Eos (Manual) 0.00 L Abs Basophils (Manual) 0.00 Atypical Lymphocytes Present Platelet Estimate Slightly decreased Schistocytes Not Reportable Syphilis IgG/IgM Ab Non-reactive HIV 1&2 Ab/P24 Ag 4thGn Negative Blood Type O Positive Antibody Screen Negative OB - PN A/P Assessment and Plan (1) S/P section: Code(s): Z98.891 - History of uterine scar from previous surgery Status: Acute Plan day: 0 Plan: routine care Comments: - PO pain meds - Regular diet, nausea meds PRN - Ambulation and hydration encouraged - Kaba to be removed Time Spent With Patient Time: Total time spent is greater than 50% in coordination of care (as documented) at patient's floor/unit and/or counseling patient: Review of Systems 2 Constitutional: Constitutional: Denies chills, Denies fever(s) and Denies headache(s) Eyes: Eyes: Denies change in vision ENT: Denies dizziness and Denies headache(s) Cardiovascular: Cardiovascular: Denies chest pain, Denies palpitations and Denies dyspnea Respiratory: Respiratory: Denies cough and Denies dyspnea Gastrointestinal: Gastrointestinal: Denies nausea and Denies vomiting Genitourinary: Comments: normal bleeding Neurologic: Denies dizziness and Denies headache(s) Endocrine: Endocrine: Denies palpitations Exam 2 Const: General: cooperative, comfortable and no acute distress O rientation/consciousness: patient oriented x3 Resp: Effort & Inspection: normal respiratory effort Auscultation: clear to auscultation bilaterally Cardio: Rate: regular rate GI: Inspection: non-distended and incision (covered with clean dressing) GI Palp: Yes abdominal tenderness (appropriate) and Yes Soft to palpation A uscultation: normal bowel sounds : Other: fundus firm Skin: General skin exam: normal color Neuro: General: patient oriented x3 Extrem: General: normal to inspection Psych: Appearance: grossly normal Affect: normal affect Attitude: c ooperative
[2024-12-30] MEDS: KETOROLAC 15 MG/ML VIAL (*BKC) IV PUSH (03:26)
[2024-12-30] MEDS: ACETAMINOPHEN 325 MG TABLET 650 MG PO ×4 (03:26→22:05)
[2024-12-30 03:55] LABS: Basophils Absolute Auto 0.1 K/mm3 (0.0-0.1); Basophils Percent Auto 0.6 % (0.2-1.2); Eosinophils Absolute Auto 0.1 K/mm3 (0-0.3); Eosinophils Percent Auto 1.2 % (0-4.4); Hematocrit 30.7 % (37.0-47.0); Immature Granulocyte Absolute 0.02 K/mm3 (0.00-0.031); Immature Granulocyte Percent A 0.2 % (0-0.5); Lymphocytes Absolute Auto 1.81 K/mm3 (0.9-3.2); Lymphocytes Percent Auto 21.9 % (18.3-44.2); Mean Corpuscular HGB Conc 32.6 g/dl (32-36); Mean Corpuscular Hemoglobin 30.6 pg (26-34); Mean Corpuscular Volume 93.9 fl (80-100); Mean Platelet Volume 12.5 fl (7.4-10.4); Monocytes Absolute Auto 0.9 K/mm3 (0.1-0.6); Monocytes Percent Auto 10.8 % (2.6-8.5); Neutrophils Absolute Auto 5.4 K/mm3 (1.3-6.7); Neutrophils Percent Auto 65.3 % (45.5-73.1); Platelet Count Result 108 k/mm3 (150-375); Red Blood Count 3.27 M/mm3 (4.2-5.4); Red Cell Distribution Width 13.2 % (11.5-14.5); White Blood Count 8.3 K/mm3 (4.5-10.0)
--- NOTE | 2024-12-30 08:59 | P.PNOB_ITS ---
OB - PN: Subj Subjective Date/time seen: 12/30/24 09:11 Narrative: POD#1 Cata reports doing well today. Her bleeding is continuity reader. Her pain is controlled. She is tolerating regular diet, voiding, passing gas, and ambulating without issues. She denies any issues with her incision. She is bottle feeding. She would like her son circumcised. She would like to stay until tomorrow. OB - PN: Obj Data Labs 12/30/24 03:24 OB - PN A/P Assessment and Plan (1) S/P section: Code(s): Z98.891 - History of uterine scar from previous surgery Status: Acute Plan day: 1 Plan: routine care Comments: - PO pain meds - Regular diet - Ambulation and hydration encouraged - Circumcision performed w/o issue Time Spent With Patient Time: Total time spent is greater than 50% in coordination of care (as documented) at patient's floor/unit and/or counseling patient: Review of Systems 2 Constitutional: Constitutional: Denies chills, Denies fever(s) and Denies headache(s) Eyes: Eyes: Denies change in vision ENT: Denies dizziness and Denies headache(s) Cardiovascular: Cardiovascular: Denies chest pain, Denies palpitations and Denies dyspnea Respiratory: Respiratory: Denies cough and Denies dyspnea Gastrointestinal: Gastrointestinal: Denies nausea and Denies vomiting Genitourinary: Comments: normal bleeding Neurologic: Denies dizziness and Denies headache(s) Endocrine: Endocrine: Denies palpitations Exam 2 Const: General: cooperative, comfortable and no acute distress O rientation/consciousness: patient oriented x3 Resp: Effort & Inspection: normal respiratory effort Auscultation: clear to auscultation bilaterally Cardio: Rate: regular rate GI: Inspection: non-distended and incision (covered with clean dressing) GI Palp: Yes abdominal tenderness (appropriate) and Yes Soft to palpation A uscultation: normal bowel sounds : Other: fundus firm Skin: General skin exam: normal color Neuro: General: patient oriented x3 Extrem: General: normal to inspection Psych: Appearance: grossly normal Affect: normal affect Attitude: c ooperative
[2024-12-30 09:00] VITALS: BP 112/68; PULSE 84; RESP 18; TEMP 36.7; O2SAT 97
[2024-12-30] MEDS: IBUPROFEN 600 MG TABLET PO ×3 (10:07→22:05)
[2024-12-30] MEDS: SIMETHICONE 80 MG TAB.CHEW PO ×3 (10:07→16:34)
[2024-12-30] MEDS: DOCUSATE SODIUM 100 MG CAPSULE PO ×2 (10:07→16:33)
[2024-12-30] MEDS: MULTIVIT/MIN/PREN/FOL AC/IRON TABLET 1 TAB PO (10:07)
--- NOTE | 2024-12-30 15:58 | WPDANLDPN2 ---
Anes-Prog Note L&D Date/Time: 12/30/24 15:58 Comfortable throughout: section Neuraxial method: spinal Epidural/Spinal procedure site: clean & non-tender Neuro status: Neuro function grossly intact. Cardiovascular status: normal Respiratory status: normal Airway patency: baseline Mental status: baseline Post-Op hydration status: normal Vital Signs: Last Vital Signs Temp 98.0 F 12/30/24 09:00 Pulse 84 12/30/24 09:00 Resp 18 12/30/24 09:00 BP 112/68 12/30/24 09:00 Pulse Ox 97 12/30/24 09:00 O2 Del Method Room Air 12/30/24 09:00 Pain score (VAS): 0 I/O: Intake & Output 12/29/24 12/30/24 12/30/24 23:59 07:59 15:59 Intake Total 240 Output Total 300 Balance -300 240 Post-procedural complaints: none Patient feedback: Patient satisfied with anesthetic care.
--- NOTE | 2024-12-30 15:58 | WPDANLDNPN2 ---
Anes-Prog Note L&D-Neuraxial Date/Time: 12/30/24 15:58 Neuraxial medications: intrathecal PF morphine Opiod-related complaints: nausea Patient feedback: Patient satisfied with post-operative pain management.
[2024-12-30 19:10] VITALS: BP 98/50; PULSE 71; RESP 18; TEMP 36.4; O2SAT 100
[2024-12-31] MEDS: ACETAMINOPHEN 325 MG TABLET 650 MG PO (04:35)
[2024-12-31] MEDS: IBUPROFEN 600 MG TABLET PO (04:35)
--- NOTE | 2024-12-31 07:22 | P.DS_ITS ---
DS: Admitting Diagnosis Discharge Date 12/31/24 Admitting Diagnosis Induction of labor DS: Discharge Diagnosis Discharge Diagnosis (1) S/P section: Code(s): Z98.891 - History of uterine scar from previous surgery Status: Acute (2) Prolonged heart deceleration: Status: Acute OB - DS: Summary OB Procedures : NST and Ultrasound OB Procedures Intrapartum: low cervical, transverse OB Procedures: : None Peripartum Data Infant Delivery Method: Section Procedures: Procedures Operation Date: 12/29/24 01:45 Actual Procedure Side Surgeon p Section Bilateral Melissa Powers MD complications: none 1: Gender: Male Disposition of : home Status at Discharge Functional status at discharge: independent ambulation Overall status at discharge: patient is back to baseline Time Spent with Patient Time attestation: Total time spent providing and/or coordinating discharge services: Exam Const: General: cooperative, healthy appearing, comfortable and no acute distress Orientation/consciousness: patient oriented x3 Resp: Effort & Inspection: normal respiratory effort Auscultation: clear to auscultation bilaterally Cardio: Rate: regular rate GI: Inspection: non-distended and incision (covered with clean dressing) GI Palp: No abdominal tenderness and Yes Soft to palpation Auscultation: normal bowel sounds : Other: fundus firm Skin: General skin exam: normal color Neuro: General: patient oriented x3 Extrem: General: normal to inspection Psych: Appearance: grossly normal Affect: normal affect Attitude: cooperative DS: Data Data Completed and Pending Pending studies at discharge: Pending at discharge 12/29/24 02:33 Surgical [PTH] Routine Labs on day of discharge: Labs from last 24 hours 12/30/24 03:24 WBC 8.3 RBC 3.27 L Hgb 10.0 L Hct 30.7 L MCV 93.9 MCH 30.6 MCHC 32.6 RDW 13.2 Plt Count 108 L MPV 12.5 H Immature Gran % (Auto) 0.2 Neut % (Auto) 65.3 Lymph % (Auto) 21.9 [place] % (Auto) 10.8 H Eos % (Auto) 1.2 Baso % (Auto) 0.6 Lymph # (Auto) 1.81 [place] # (Auto) 0.9 H Eos # (Auto) 0.1 Baso # (Auto) 0.1 Abs Immat Gran (auto) 0.02 Absolute Neuts (auto) 5.4 Absolute Nucleated RBC 0.000 Nucleated RBC % 0.0 Discharge Plan Discharge Attending physician on discharge: Melissa Powers Discharging Clinician: Melissa Powers Anticipated Discharge Date/Time: 12/31/24 09:00 Patient Disposition: Home Activity: may shower and pelvic rest Diet: regular Discharge Instructions: No lifting over 15lbs for 6 weeks No showers/pools for 6 weeks Remove dressing on 01/03/25 Patient Instructions: (DC) Patient Language: Spanish Stand Alone Forms: General Discharge Information Follow-up/Referrals: Melissa Powers MD [Physician] - 4 Weeks Discharge Medications: New acetaminophen 325 mg Tablet 650 mg PO Q6H Qty: 60 0RF docusate sodium 100 mg Capsule 100 mg PO BID Qty: 90 0RF ibuprofen 600 mg Tablet 600 mg PO Q6H Qty: 40 0RF oxycodone 5 mg Tablet 5 mg PO Q4H PRN (Reason: Pain Rated 4-6) Qty: 15 0RF Continued escitalopram oxalate 5 mg tablet 5 mg PO PRN (Reason: anxiety) albuterol-budesonide 90-80 mcg/actuation HFA aerosol inhaler 2 inh inhalation ONCE Rx Instructions: as a single dose; may repeat up to 6 doses per day (12 inhalations) Classic 28 mg iron- 800 mcg tablet PO Date of admission: 12/28/24 16:46 Primary Care Provider: UNKNOWN,DOCTOR Admitting Provider: Melissa Powers Attending physician on admission: Melissa Powers Condition: Stable
[2024-12-31 07:35] VITALS: BP 105/66; PULSE 78; RESP 18; TEMP 36.9; O2SAT 100
[2024-12-31] MEDS: DOCUSATE SODIUM 100 MG CAPSULE PO (09:27)
[2024-12-31] MEDS: MULTIVIT/MIN/PREN/FOL AC/IRON TABLET 1 TAB PO (09:27)
[2024-12-31] MEDS: SIMETHICONE 80 MG TAB.CHEW PO (09:27)
--- NOTE | 2024-12-31 09:37 | PC.NURSE ---
Mother does not have to follow up tomorrow at the hospital for her follow up visit per Dr. Powers.
== END 2024-12-31 10:26 | disposition home or self-care (01) | DRG 788 ==
LOC: ANHLDR 12-29 03:53 → ANHOB2 12-29 05:18
PROVIDERS: Admitting Provider Obstetrics & Gynecology; Visit Provider Obstetrics & Gynecology
PROC: 10D00Z1 Extraction of Products of Conception, Low, Open Approach (ICD-10-PCS; CPT 59514; principal; 2024-12-29 01:45)
DX: O76 Abnormality in fetal heart rate and rhythm complicating labor and delivery (principal); O99.824 Streptococcus B carrier state complicating childbirth; O99.52 Diseases of the respiratory system complicating childbirth; J45.909 Unspecified asthma, uncomplicated; Z3A.39 39 weeks gestation of pregnancy; Z37.0 Single live birth; Z88.0 Allergy status to penicillin
CPT/HCPCS: 36415; 85025; 86593; 86703; 86850; 86900; 86901; 88307; A9270; G0432; J1885; J2274; J2405; J2590; J2765; J3105; J3370; J7120